=== PATIENT | female | born 1945 | race Hispanic/Latino ===

== ENCOUNTER 2018-04-20 21:25 | Emergency (ER) | payer OTHER ==
--- NOTE | 2018-04-20 23:54 | ER ---
Nurse's Notes [facility] Name: Jacqueline Ramirez Age: 72 yrs Sex: Female : 1945 Arrival Date: 04/20/2018 Time: 21:27 Bed 20 Private MD: Brian Oliva Diagnosis: Acute sinusitis Presentation: 04/20 21:30 Presenting complaint: Patient states: Earache and dizziness since yesterday. Denies aj1 fever. Reports nausea, denies vomiting, diarrhea. Transition of care: patient was not received from another setting of care. Onset of symptoms was April 19, 2018. Risk Assessment: Do you want to hurt yourself or someone else? Patient reports no desire to harm self or others. Initial Sepsis Screen: Does the patient meet any 2 criteria? No. Patient's initial sepsis screen is negative. Does the patient have a suspected source of infection? No. Patient's initial sepsis screen is negative. Care prior to arrival: None. 21:30 Method Of Arrival: Ambulatory aj1 21:30 Acuity: NASRIN 3 aj1 Triage Assessment: 21:32 General: Appears in no apparent distress. comfortable, Behavior is calm, cooperative, aj1 appropriate for age. Pain: Complains of pain in left ear Pain currently is 9 out of 10 on a pain scale. EENT: Reports ear pain. Neuro: Level of Consciousness is awake, alert, obeys commands. Neuro: Reports dizziness. Cardiovascular: Patient's skin is warm and dry. Respiratory: Airway is patent Respiratory effort is even, unlabored, Respiratory pattern is regular, symmetrical. Historical: - Allergies: 21:32 No Known Allergies; aj1 - Home Meds: 21:32 losartan 50 mg Oral tab [Active]; multivitamin oral oral [Active]; [place]-3 oral oral aj1 [Active]; - PMHx: 21:32 Hypertension; aj1 - Immunization history:: Flu vaccine is up to date. - Social history:: Smoking status: Patient/guardian denies using tobacco. - Ebola Screening: : Patient denies travel to an Ebola-affected area in the 21 days before illness onset. Screenin:10 Abuse screen: Denies threats or abuse. Denies injuries from another. Nutritional ak1 screening: No deficits noted. Tuberculosis screening: No symptoms or risk factors identified. Fall Risk None identified. Assessment: 22:10 General: Appears in no apparent distress. Behavior is calm, cooperative. Neuro: No ak1 deficits noted. Cardiovascular: No deficits noted. Respiratory: No deficits noted. GI: No signs and/or symptoms were reported involving the gastrointestinal system. : No signs and/or symptoms were reported regarding the genitourinary system. EENT: Reports ear pain, throat pain. Derm: No signs and/or symptoms reported regarding the dermatologic system. Musculoskeletal: No signs and/or symptoms reported regarding the musculoskeletal system. Vital Signs: 21:32 BP 171 / 83; Pulse 93; Resp 20; Temp 98.8; Pulse Ox 99% on R/A; Weight 85.73 kg (R); aj1 Height 5 ft. 2 in. (157.48 cm) (R); Pain 9/10; 23:21 BP 170 / 78; Pulse 85; Resp 18; Temp 97.9(O); Pulse Ox 97% on R/A; Pain 0/10; ak1 21:32 Body Mass Index 34.57 (85.73 kg, 157.48 cm) aj1 ED Course: 21:27 Patient arrived in ED. al2 21:27 Brian Oliva MD is Private Physician. al2 21:31 Triage completed. aj1 21:32 Arm band placed on Patient placed in an exam room. aj1 21:34 Cecy Walker, RN is Primary Nurse. ak1 21:49 Lissy Tello FNP-C is PHCP. kb 21:50 Brenden Candelario MD is Attending Physician. kb 22:10 Patient has correct armband on for positive identification. Bed in low position. Call ak1 light in reach. Side rails up X 1. 22:10 No provider procedures requiring assistance completed. ak1 04/21 00:05 Patient did not have IV access during this emergency room visit. ak1 Administered Medications: 00:04 Drug: Meclizine 25 mg Route: PO; ak1 00:04 Follow up: Response: No adverse reaction ak1 00:04 Drug: predniSONE 40 mg Route: PO; ak1 00:05 Follow up: Response: No adverse reaction ak1 Outcome: 04/20 23:54 Discharge ordered by . thalia 04/21 00:05 Discharged to home ambulatory, with family. ak1 Condition: good Discharge instructions given to patient, Instructed on discharge instructions, follow up and referral plans. medication usage, Demonstrated understanding of instructions, follow-up care, medications, Prescriptions given X 1. 00:05 Patient left the ED. ak1 Signatures: Lissy Tello, SALLY ALONSO-Starla Mack, RN RN aj1 Cecy Walker RN RN ak1 Leslie Pate
--- NOTE | 2018-04-20 23:54 | EDPHYS ---
Physician Documentation [facility] Emergency [facility] Name: Jacqueline Ramirez Age: 72 yrs Sex: Female : 1945 Arrival Date: 04/20/2018 Time: 21:27 Bed 20 Private MD: Brian Oliva ED Physician Brenden Candelario HPI: 04/20 23:51 This 72 yrs old Female presents to ER via Ambulatory with complaints of Ear kb Pain, Dizziness. 23:51 The patient presents with pain, moderate. The complaints affect the left ear. Onset: kb The symptoms/episode began/occurred 3 day(s) ago. Modifying factors: The symptoms are alleviated by nothing, the symptoms are aggravated by nothing. Associated signs and symptoms: Pertinent positives: sinus congestion and pain, vertigo, Pertinent negatives: cough, fever, lightheadedness, nausea, rhinorrhea, sinus trouble, shortness of breath, sore throat, tinnitus, vomiting. Severity of symptoms: At their worst the symptoms were moderate in the emergency department the symptoms are unchanged. The patient has not experienced similar symptoms in the past. The patient has not recently seen a physician. Pt reports left ear pain, sinus pain/congestion and "mucus in throat" for 3 days. Reports she has also been getting dizzy when she lays her head down to one side. . Historical: - Allergies: 21:32 No Known Allergies; aj1 - Home Meds: 21:32 losartan 50 mg Oral tab [Active]; multivitamin oral oral [Active]; [place]-3 oral oral aj1 [Active]; - PMHx: 21:32 Hypertension; aj1 - Immunization history:: Flu vaccine is up to date. - Social history:: Smoking status: Patient/guardian denies using tobacco. - Ebola Screening: : Patient denies travel to an Ebola-affected area in the 21 days before illness onset. ROS: 23:50 Constitutional: Negative for fever, chills, and weight loss, Neck: Negative for injury, kb pain, and swelling, Cardiovascular: Negative for chest pain, palpitations, and edema, Respiratory: Negative for shortness of breath, cough, wheezing, and pleuritic chest pain, Abdomen/GI: Negative for abdominal pain, nausea, vomiting, diarrhea, and constipation, Back: Negative for injury and pain, : Negative for injury, bleeding, discharge, and swelling, MS/Extremity: Negative for injury and deformity, Skin: Negative for injury, rash, and discoloration. 23:50 ENT: Positive for ear pain, sinus congestion, sinus pain, sore throat. 23:50 Neuro: Positive for dizziness, Negative for altered mental status, gait disturbance, headache, hearing loss, loss of consciousness, numbness, seizure activity, speech changes, syncope, near syncope, tingling, tinnitus, tremor, visual changes, weakness. Exam: 23:50 Constitutional: This is a well developed, well nourished patient who is awake, alert, kb and in no acute distress. Head/Face: Normocephalic, atraumatic. ENT: Nares patent. No nasal discharge, no septal abnormalities noted. Tympanic membranes are normal and external auditory canals are clear. Oropharynx with no redness, swelling, or masses, exudates, or evidence of obstruction, uvula midline. Mucous membranes moist. Neck: Trachea midline, no thyromegaly or masses palpated, and no cervical lymphadenopathy. Supple, full range of motion without nuchal rigidity, or vertebral point tenderness. No Meningismus. Chest/axilla: Normal chest wall appearance and motion. Nontender with no deformity. No lesions are appreciated. Cardiovascular: Regular rate and rhythm with a normal S1 and S2. No gallops, murmurs, or rubs. Normal PMI, no JVD. No pulse deficits. Respiratory: Lungs have equal breath sounds bilaterally, clear to auscultation and percussion. No rales, rhonchi or wheezes noted. No increased work of breathing, no retractions or nasal flaring. Abdomen/GI: Soft, non-tender, with normal bowel sounds. No distension or tympany. No guarding or rebound. No evidence of tenderness throughout. Skin: Warm, dry with normal turgor. Normal color with no rashes, no lesions, and no evidence of cellulitis. MS/ Extremity: Pulses equal, no cyanosis. Neurovascular intact. Full, normal range of motion. Neuro: Awake and alert, GCS 15, oriented to person, place, time, and situation. Cranial nerves II-XII grossly intact. Motor strength 5/5 in all extremities. Sensory grossly intact. Cerebellar exam normal. Normal gait. 23:50 Head/face: Sinus tenderness, that is moderate, is located over the right frontal sinus, left frontal sinus, right ethmoid sinus and left ethmoid sinus. Vital Signs: 21:32 BP 171 / 83; Pulse 93; Resp 20; Temp 98.8; Pulse Ox 99% on R/A; Weight 85.73 kg (R); aj1 Height 5 ft. 2 in. (157.48 cm) (R); Pain 9/10; 23:21 BP 170 / 78; Pulse 85; Resp 18; Temp 97.9(O); Pulse Ox 97% on R/A; Pain 0/10; ak1 21:32 Body Mass Index 34.57 (85.73 kg, 157.48 cm) aj1 MDM: 21:50 Patient medically screened. kb 23:50 Data reviewed: vital signs, nurses notes. Data interpreted: Pulse oximetry: on room air kb is 97 %. Interpretation: normal. Counseling: I had a detailed discussion with the patient and/or guardian regarding: the historical points, exam findings, and any diagnostic results supporting the discharge/admit diagnosis, lab results, the need for outpatient follow up, a family practitioner, to return to the emergency department if symptoms worsen or persist or if there are any questions or concerns that arise at home. 04/20 22:09 Order name: Flu; Complete Time: 23:02 ak1 04/20 22:09 Order name: Strep; Complete Time: 22:47 ak1 04/20 22:42 Order name: Throat Culture EDMS Administered Medications: 04/21 00:04 Drug: Meclizine 25 mg Route: PO; ak1 00:04 Follow up: Response: No adverse reaction ak1 00:04 Drug: predniSONE 40 mg Route: PO; ak1 00:05 Follow up: Response: No adverse reaction ak1 Disposition: 04/20/18 23:54 Discharged to Home. Impression: Acute sinusitis. - Condition is Stable. - Discharge Instructions: Sinusitis, Adult, [id number]. - Prescriptions for Prednisone 20 mg Oral Tablet - take 1 tablet by ORAL route once daily for 5 days; 5 tablet. - Medication Reconciliation Form, Thank You Letter, Antibiotic Education, Prescription Opioid Use form. - Follow up: Emergency Department; When: As needed; Reason: Worsening of condition. Follow up: Private Physician; When: 2 - 3 days; Reason: Recheck today's complaints, Continuance of care, Re-evaluation by your physician. Signatures: Dispatcher [employer] Lissy Garrido, RECEPTIONIST/TELEPHONE OPERATOR-C RECEPTIONIST/TELEPHONE OPERATOR-Starla Mack, RN RN aj1 Cecy Walker RN RN ak1 Corrections: (The following items were deleted from the chart) 00:05 04/20 23:54 04/20/2018 23:54 Discharged to Home. Impression: Acute sinusitis. Condition ak1 is Stable. Forms are Medication Reconciliation Form, Thank You Letter, Antibiotic Education, Prescription Opioid Use. Follow up: Emergency Department; When: As needed; Reason: Worsening of condition. Follow up: Private Physician; When: 2 - 3 days; Reason: Recheck today's complaints, Continuance of care, Re-evaluation by your physician. kb
[2018-04-21] MEDS ORDERED: predniSONE 20 MG TAB ONE (00:10)
[2018-04-21] MEDS ORDERED: MECLIZINE HCL 12.5 MG TAB ONE (00:10)
[2018-04-21 00:41] VITALS: BP 170/78; TEMP 97.9; O2SAT 97
== END 2018-04-21 00:05 | disposition home or self-care (01) ==
LOC: ER 21:25
DX: J01.90 Acute sinusitis, unspecified (principal); I10 Essential (primary) hypertension
CPT/HCPCS: 87070; 87081; 87804; 99283; J7512

== ENCOUNTER 2019-05-08 04:28 | Emergency (ER) | payer OTHER ==
[2019-05-08] MEDS ORDERED: MAGNE/ALUM HYDROXD 30 ML UCUP ONE (05:01)
[2019-05-08] MEDS ORDERED: PANTOPRAZOLE 40 MG INJ ONE (05:01)
[2019-05-08] MEDS ORDERED: LIDOCAINE VISCOUS 2% SOLN 15 ML UDC ONE (05:02)
[2019-05-08 05:11] LABS: Absolute Lymphocytes (CBC) 2.4 K/uL (0.7-4.9); Basophils % 0.4 % (0-1.3); Hematocrit 44.5 % (36.0-45.0); Lymphocytes % 26.3 % (15.3-44.8); MPV 8.5 fL (7.6-11.3); RBC Red Blood Cell Count 5.03 M/uL (3.86-4.86)
[2019-05-08 05:12] LABS: Protime INR 0.97
[2019-05-08 05:32] LABS: ALT/SGPT 26 U/L (12-78); AST/SGOT 15 U/L (15-37); Albumin 3.6 g/dL (3.4-5.0); Alkaline Phosphatase 133 U/L (45-117); BUN Blood Urea Nitrogen 11 mg/dL (7-18); Bicarbonate 27 mmol/L (21-32); Bilirubin Direct < 0.1 mg/dL (0-0.2); Bilirubin Total 0.4 mg/dL (0.2-1.0); Glucose Level 117 mg/dL (74-106); Lipase 98 U/L (73-393); Magnesium 2.2 mg/dL (1.8-2.4); NT PRO-BNP 138 pg/mL (<125); Potassium 3.7 mmol/L (3.5-5.1); Protein, Total 7.9 g/dL (6.4-8.2); Sodium Level 141 mmol/L (136-145); Troponin (Emerg Dept Use Only) < 0.02 ng/mL (0.0-0.045)
[2019-05-08] MEDS ORDERED: METOPROLOL TAR 50 MG TAB ONE (05:41)
[2019-05-08 06:02] LABS: Urine Blood TRACE (NEG); Urine Glucose NEGATIVE (NEG); Urine Protein NEGATIVE (NEG)
--- NOTE | 2019-05-08 07:17 | ER ---
Nurse's Notes [facility] Name: Jacqueline Ramirez Age: 73 yrs Sex: Female : 1945 Arrival Date: 05/08/2019 Time: 04:30 Bed 6 Private MD: Diagnosis: Gastro-esophageal reflux disease;Essential (primary) hypertension;Nausea;Urinary tract infection, site not specified Presentation: 05/08 04:40 Presenting complaint: Patient states: she thinks she is having heart burn and a sore bb throat for 2 days states she is burping a lot. Transition of care: patient was not received from another setting of care. Onset of symptoms was May 06, 2019. Risk Assessment: Do you want to hurt yourself or someone else? Patient reports no desire to harm self or others. Initial Sepsis Screen: Does the patient meet any 2 criteria? No. Patient's initial sepsis screen is negative. Does the patient have a suspected source of infection? No. Patient's initial sepsis screen is negative. Care prior to arrival: None. 04:40 Method Of Arrival: Ambulatory bb 04:40 Acuity: NASRIN 3 bb Historical: - Allergies: 04:42 No Known Allergies; bb - Home Meds: 04:42 losartan 50 mg Oral tab [Active]; [place]-3 Oral [Active]; bb - PMHx: 04:42 Hypertension; bb - PSHx: 04:42 None; bb - Immunization history:: Adult Immunizations up to date. - Social history:: Smoking status: Patient/guardian denies using tobacco. - Ebola Screening: : No symptoms or risks identified at this time. Screenin:10 Abuse screen: Denies threats or abuse. Nutritional screening: No deficits noted. jd3 Tuberculosis screening: No symptoms or risk factors identified. Fall Risk IV access (20 points). Ambulatory Aid- None/Bed Rest/Nurse Assist (0 pts). Gait- Normal/Bed Rest/Wheelchair (0 pts) Mental Status- Oriented to own ability (0 pts). Total [place] Fall Scale indicates No Risk (0-24 pts). Assessment: 04:50 General: Appears in no apparent distress. uncomfortable, Behavior is calm, cooperative, jd3 appropriate for age. Pain: Complains of pain in throat Quality of pain is described as aching. Neuro: Level of Consciousness is awake, alert, obeys commands, Oriented to person, place, time, situation. Cardiovascular: Denies chest pain, Capillary refill < 3 seconds Patient's skin is warm and dry. Rhythm is regular. Respiratory: Airway is patent Respiratory effort is even, unlabored, Respiratory pattern is regular, symmetrical, Denies cough, shortness of breath. GI: Abdomen is round non-distended, Reports indigestion, Patient currently denies diarrhea, nausea, vomiting. : No signs and/or symptoms were reported regarding the genitourinary system. EENT: No signs and/or symptoms were reported regarding the EENT system. Derm: Skin is intact, Skin is dry, Skin is normal, Skin temperature is warm. Musculoskeletal: Circulation, motion, and sensation intact. Range of motion: intact in all extremities. 05:40 Reassessment: Patient appears in no apparent distress at this time. Patient and/or jd3 family updated on plan of care and expected duration. Pain level reassessed. Patient is alert, oriented x 3, equal unlabored respirations, skin warm/dry/pink. Patient denies pain at this time. Patient states feeling better. 06:05 Reassessment: Patient appears in no apparent distress at this time. Patient and/or jd3 family updated on plan of care and expected duration. Pain level reassessed. Patient is alert, oriented x 3, equal unlabored respirations, skin warm/dry/pink. repeat EKG performed and repeat Trop sent to lab Patient denies pain at this time. Patient states feeling better. 07:00 Reassessment: Patient appears in no apparent distress at this time. Patient and/or ph family updated on plan of care and expected duration. Pain level reassessed. Patient is alert, oriented x 3, equal unlabored respirations, skin warm/dry/pink. Vital Signs: 04:42 BP 187 / 95; Pulse 89; Resp 16 S; Temp 99.3(TE); Pulse Ox 97% on R/A; Weight 86.64 kg bb (R); Height 5 ft. 2 in. (157.48 cm) (R); Pain 9/10; 05:40 BP 189 / 63; Pulse 79; Resp 19 S; Pulse Ox 98% on R/A; jd3 06:05 BP 162 / 74; Pulse 72; Resp 16 S; Pulse Ox 95% on R/A; jd3 07:00 BP 159 / 78; Pulse 76; Resp 18; Temp 98.4; Pulse Ox 98% on R/A; ph 04:42 Body Mass Index 34.93 (86.64 kg, 157.48 cm) bb ED Course: 04:30 Patient arrived in ED. cl3 04:36 Mychal Salazar MD is Attending Physician. an 04:41 Triage completed. bb 04:42 Arm band placed on Patient placed in an exam room, on a stretcher, on site monitor, bb on pulse oximetry. EKG completed in triage. Results shown to MD. Family accompanied patient. 04:50 Inserted saline lock: 20 gauge in right forearm, using aseptic technique. Blood jd3 collected. 04:52 Seven Nguyen, ARTUR is Primary Nurse. jd3 05:11 XRAY Chest (1 view) In Process Unspecified. EDMS 05:11 Patient has correct armband on for positive identification. Placed in gown. Bed in low jd3 position. Call light in reach. Side rails up X 1. Adult w/ patient. 07:11 Josh Jewell MD is Referral Physician. an 07:40 No provider procedures requiring assistance completed. IV discontinued, intact, ph bleeding controlled, No redness/swelling at site. Pressure dressing applied. Administered Medications: 05:08 Drug: ProTONIX 40 mg Route: IVP; Site: right forearm; jd3 08:38 Follow up: Response: No adverse reaction ph 05:08 Drug: GI Cocktail without - (Maalox Suspension 30 ml, Lidocaine Liquid 2 % 15 jd3 ml) Route: PO; 07:30 Follow up: Response: No adverse reaction ph 05:40 Drug: Lopressor (metoprolol TARTRATE) 50 mg Route: PO; jd3 07:10 Follow up: Response: No adverse reaction ph 07:41 Not Given (Patient Refused): Rocephin 1 grams IV at per protocol once; Given slow IV ph push per pharmacy instructions 07:41 Drug: Aspirin Chewable Tablet 162 mg Route: PO; ph 07:45 Follow up: Response: No adverse reaction ph 07:41 Drug: LevOfloxacin 500 mg Route: PO; ph 07:45 Follow up: Response: No adverse reaction ph Outcome: 07:11 Discharge ordered by . an 07:42 Patient left the ED. ph 07:42 Discharged to home ambulatory, with family. ph 07:42 Condition: good 07:42 Discharge instructions given to patient, Instructed on discharge instructions, follow up and referral plans. medication usage, Demonstrated understanding of instructions, follow-up care, medications, Prescriptions given X 5 Addendum: 05/11/2019 09:20 Addendum: Culture Results: Positive urine culture. No further action required. Bacteria a a5 sensitive to prescribed antibiotic. Signatures: Dispatcher [employer] EDUT Mychal Salazar MD MD cha Ballard, Brenda RN RN bb Amanda Camara RN RN aa5 Betzaida Lee RN RN Seven Stanley RN RN Alda Ovalle cl3 Corrections: (The following items were deleted from the chart) 05/08 06:06 06:05 Reassessment: Patient appears in no apparent distress at this time. Patient jd3 and/or family updated on plan of care and expected duration. Pain level reassessed. Patient is alert, oriented x 3, equal unlabored respirations, skin warm/dry/pink. repeat EKG performed and repeat Trop sent to lab jd3 08:40 08:39 Response: No adverse reaction ph ph
--- NOTE | 2019-05-08 07:21 | EDPHYS ---
Physician Documentation [facility] Name: Jacqueline Ramirez Age: 73 yrs Sex: Female : 1945 Arrival Date: 05/08/2019 Time: 04:30 Bed 6 Private MD: ED Physician Mychal Salazar HPI: 05/08 04:53 This 73 yrs old Female presents to ER via Ambulatory with complaints of an Nausea, Heartburn. 04:53 The patient presents to the emergency department with nausea, that is mild. Onset: The an symptoms/episode began/occurred 2 day(s) ago. Possible causes: unknown. The symptoms are aggravated by nothing. The symptoms are alleviated by nothing. Associated signs and symptoms: The patient has no apparent associated signs or symptoms. Severity of symptoms: At their worst the symptoms were mild in the emergency department the symptoms are unchanged. The patient has not experienced similar symptoms in the past, but family has similar symptoms. Historical: - Allergies: 04:42 No Known Allergies; bb - Home Meds: 04:42 losartan 50 mg Oral tab [Active]; [place]-3 Oral [Active]; bb - PMHx: 04:42 Hypertension; bb - PSHx: 04:42 None; bb - Immunization history:: Adult Immunizations up to date. - Social history:: Smoking status: Patient/guardian denies using tobacco. - Ebola Screening: : No symptoms or risks identified at this time. ROS: 04:54 Constitutional: Negative for fever, chills, and weight loss, Eyes: Negative for injury, an pain, redness, and discharge, ENT: Negative for injury, pain, and discharge, Cardiovascular: Negative for chest pain, palpitations, and edema, Respiratory: Negative for shortness of breath, cough, wheezing, and pleuritic chest pain, Abdomen/GI: Negative for abdominal pain, nausea, vomiting, diarrhea, and constipation, Back: Negative for injury and pain, : Negative for injury, bleeding, discharge, and swelling, MS/Extremity: Negative for injury and deformity, Skin: Negative for injury, rash, and discoloration, Neuro: Negative for headache, weakness, numbness, tingling, and seizure, Psych: Negative for depression, anxiety, suicide ideation, homicidal ideation, and hallucinations, Allergy/Immunology: Negative for hives, rash, and allergies, Endocrine: Negative for neck swelling, polydipsia, polyuria, polyphagia, and marked weight changes, Hematologic/Lymphatic: Negative for swollen nodes, abnormal bleeding, and unusual bruising. 04:54 Neck: Positive for pain at rest. Exam: 04:54 Constitutional: This is a well developed, well nourished patient who is awake, alert, an and in no acute distress. Head/Face: Normocephalic, atraumatic. Eyes: Pupils equal round and reactive to light, extra-ocular motions intact. Lids and lashes normal. Conjunctiva and sclera are non-icteric and not injected. Cornea within normal limits. Periorbital areas with no swelling, redness, or edema. ENT: Nares patent. No nasal discharge, no septal abnormalities noted. Tympanic membranes are normal and external auditory canals are clear. Oropharynx with no redness, swelling, or masses, exudates, or evidence of obstruction, uvula midline. Mucous membranes moist. Neck: Trachea midline, no thyromegaly or masses palpated, and no cervical lymphadenopathy. Supple, full range of motion without nuchal rigidity, or vertebral point tenderness. No Meningismus. Chest/axilla: Normal chest wall appearance and motion. Nontender with no deformity. No lesions are appreciated. Cardiovascular: Regular rate and rhythm with a normal S1 and S2. No gallops, murmurs, or rubs. Normal PMI, no JVD. No pulse deficits. Respiratory: Lungs have equal breath sounds bilaterally, clear to auscultation and percussion. No rales, rhonchi or wheezes noted. No increased work of breathing, no retractions or nasal flaring. Abdomen/GI: Soft, non-tender, with normal bowel sounds. No distension or tympany. No guarding or rebound. No evidence of tenderness throughout. Back: No spinal tenderness. No costovertebral tenderness. Full range of motion. Female : Normal external genitalia. Skin: Warm, dry with normal turgor. Normal color with no rashes, no lesions, and no evidence of cellulitis. MS/ Extremity: Pulses equal, no cyanosis. Neurovascular intact. Full, normal range of motion. Neuro: Awake and alert, GCS 15, oriented to person, place, time, and situation. Cranial nerves II-XII grossly intact. Motor strength 5/5 in all extremities. Sensory grossly intact. Cerebellar exam normal. Normal gait. Psych: Awake, alert, with orientation to person, place and time. Behavior, mood, and affect are within normal limits. Vital Signs: 04:42 BP 187 / 95; Pulse 89; Resp 16 S; Temp 99.3(TE); Pulse Ox 97% on R/A; Weight 86.64 kg bb (R); Height 5 ft. 2 in. (157.48 cm) (R); Pain 9/10; 05:40 BP 189 / 63; Pulse 79; Resp 19 S; Pulse Ox 98% on R/A; jd3 06:05 BP 162 / 74; Pulse 72; Resp 16 S; Pulse Ox 95% on R/A; jd3 07:00 BP 159 / 78; Pulse 76; Resp 18; Temp 98.4; Pulse Ox 98% on R/A; ph 04:42 Body Mass Index 34.93 (86.64 kg, 157.48 cm) MDM: 04:37 Patient medically screened. [facility] 04:56 Data reviewed: vital signs, nurses notes, lab test result(s), EKG, radiologic studies, an plain films. 05/08 04:51 Order name: Basic Metabolic Panel; Complete Time: 06:56 [facility] 05/08 04:51 Order name: CBC with Diff; Complete Time: 06:56 [facility] 05/08 04:51 Order name: LFT's; Complete Time: 06:56 [facility] 05/08 04:51 Order name: Magnesium; Complete Time: 06:56 [facility] 05/08 04:51 Order name: NT PRO-BNP; Complete Time: 06:56 [facility] 05/08 04:51 Order name: PT-INR; Complete Time: 06:56 [facility] 05/08 04:51 Order name: Troponin (emerg Dept Use Only); Complete Time: 06:56 [facility] 05/08 04:51 Order name: XRAY Chest (1 view) [facility] 05/08 04:52 Order name: Urine Culture [facility] 05/08 04:52 Order name: Lipase; Complete Time: 06:56 [facility] 05/08 05:21 Order name: Troponin (emerg Dept Use Only): 6AM; Complete Time: 07:10 [facility] 05/08 05:56 Order name: Urine Dipstick--Ancillary (enter results) ar5 05/08 06:02 Order name: Urine Dipstick-Ancillary; Complete Time: 06:56 EDMS 05/08 04:51 Order name: EKG; Complete Time: 04:53 an 05/08 04:51 Order name: Cardiac monitoring; Complete Time: 04:53 an 05/08 04:51 Order name: EKG - Nurse/Tech; Complete Time: 04:53 an 05/08 04:51 Order name: IV Saline Lock; Complete Time: 04:53 an 05/08 04:51 Order name: Labs collected and sent; Complete Time: 04:53 an 05/08 04:51 Order name: O2 Per Protocol; Complete Time: 04:53 an 05/08 04:51 Order name: O2 Sat Monitoring; Complete Time: 04:53 an 05/08 04:51 Order name: Urine Dipstick-Ancillary (obtain specimen); Complete Time: 06:04 an 05/08 05:21 Order name: EKG; Complete Time: 05:29 an 05/08 05:21 Order name: EKG - Nurse/Tech; Complete Time: 06:04 an Administered Medications: 05:08 Drug: ProTONIX 40 mg Route: IVP; Site: right forearm; jd3 08:38 Follow up: Response: No adverse reaction ph 05:08 Drug: GI Cocktail without - (Maalox Suspension 30 ml, Lidocaine Liquid 2 % 15 jd3 ml) Route: PO; 07:30 Follow up: Response: No adverse reaction ph 05:40 Drug: Lopressor (metoprolol TARTRATE) 50 mg Route: PO; jd3 07:10 Follow up: Response: No adverse reaction ph 07:41 Not Given (Patient Refused): Rocephin 1 grams IV at per protocol once; Given slow IV ph push per pharmacy instructions 07:41 Drug: Aspirin Chewable Tablet 162 mg Route: PO; ph 07:45 Follow up: Response: No adverse reaction ph 07:41 Drug: LevOfloxacin 500 mg Route: PO; ph 07:45 Follow up: Response: No adverse reaction ph Disposition: 05/08/19 07:11 Discharged to Home. Impression: Gastro-esophageal reflux disease, Essential (primary) hypertension, Nausea, Urinary tract infection, site not specified. - Condition is Stable. - Discharge Instructions: Dysuria, Gastroesophageal Reflux Disease, Adult, Hypertension, Urinary Tract Infection, Adult, Urinary Tract Infection, Adult, [id number]-[id number], Hypertension, Glxs-ar-Spsy, Gastroesophageal Reflux Disease, Adult, Yrmt-so-[id number], Aspirin and Your Heart. - Prescriptions for Protonix 40 mg Oral Tablet - take 1 tablet by ORAL route once daily; 30 tablet. Toprol XL 50 mg Oral Tablet - take 1 tablet by ORAL route once daily; 20 tablet. Zofran 4 mg Oral Tablet - take 1 tablet by ORAL route every 12 hours As needed; 20 tablet. losartan 50 mg Oral tablet - take 1 tablet by ORAL route once daily; 30 tablet. Levaquin 250 mg Oral Tablet - take 1 tablet by ORAL route once daily for 7 days; 7 tablet. - Medication Reconciliation Form, Thank You Letter, Antibiotic Education, Prescription Opioid Use form. - Follow up: Private Physician; When: 2 - 3 days; Reason: Recheck today's complaints, Continuance of care, Re-evaluation by your physician. Follow up: Josh Jewell; When: 2 - 3 days; Reason: Recheck today's complaints, Re-evaluation by your physician. - Problem is new. - Symptoms have improved. Signatures: Dispatcher [employer] EDMS Mychal Salazar MD MD cha Ballard, Brenda, RN RN Betzaida Martins RN RN Seven Stanley RN RN jd3 Corrections: (The following items were deleted from the chart) 07:18 07:11 05/08/2019 07:11 Discharged to Home. Impression: Gastro-esophageal reflux an disease; Essential (primary) hypertension; Nausea. Condition is Stable. Discharge Instructions: Gastroesophageal Reflux Disease, Adult, Hypertension, Hypertension, Alqi-hr-Trgd, Gastroesophageal Reflux Disease, Adult, Bmij-ju-Xdkr, Aspirin and Your Heart. Prescriptions for Protonix 40 mg Oral Tablet - take 1 tablet by ORAL route once daily; 30 tablet, Toprol XL 50 mg Oral Tablet - take 1 tablet by ORAL route once daily; 20 tablet, Zofran 4 mg Oral Tablet - take 1 tablet by ORAL route every 12 hours As needed; 20 tablet, losartan 50 mg Oral tablet - take 1 tablet by ORAL route once daily; 30 tablet. and Forms are Medication Reconciliation Form, Thank You Letter, Antibiotic Education, Prescription Opioid Use. Follow up: Private Physician; When: 2 - 3 days; Reason: Recheck today's complaints, Continuance of care, Re-evaluation by your physician. Follow up: Josh Jewell; When: 2 - 3 days; Reason: Recheck today's complaints, Re-evaluation by your physician. Problem is new. Symptoms have improved. [facility] 07:42 07:18 05/08/2019 07:11 Discharged to Home. Impression: Gastro-esophageal reflux ph disease; Essential (primary) hypertension; Nausea; Urinary tract infection, site not specified. Condition is Stable. Discharge Instructions: Gastroesophageal Reflux Disease, Adult, Hypertension, Hypertension, Meua-qm-Kyhg, Gastroesophageal Reflux Disease, Adult, Hhrs-kz-Yszf, Aspirin and Your Heart. Prescriptions for Protonix 40 mg Oral Tablet - take 1 tablet by ORAL route once daily; 30 tablet, Toprol XL 50 mg Oral Tablet - take 1 tablet by ORAL route once daily; 20 tablet, Zofran 4 mg Oral Tablet - take 1 tablet by ORAL route every 12 hours As needed; 20 tablet, losartan 50 mg Oral tablet - take 1 tablet by ORAL route once daily; 30 tablet. and Forms are Medication Reconciliation Form, Thank You Letter, Antibiotic Education, Prescription Opioid Use. Follow up: Private Physician; When: 2 - 3 days; Reason: Recheck today's complaints, Continuance of care, Re-evaluation by your physician. Follow up: Josh Jewell; When: 2 - 3 days; Reason: Recheck today's complaints, Re-evaluation by your physician. Problem is new. Symptoms have improved. [facility]
[2019-05-08] MEDS ORDERED: levoFLOXacin 500 MG TAB ONE (07:35)
[2019-05-08] MEDS ORDERED: ASPIRIN 81 MG CHEWABLE TABLET ONE (07:35)
[2019-05-08] MEDS ORDERED: CEFTRIAXONE/SWI 1gm 1 GM/10 ML SYR ONE (07:35)
[2019-05-08 07:49] VITALS: TEMP 99.3
[2019-05-08 07:52] VITALS: BP 162/74; O2SAT 95
--- NOTE | 2019-05-08 09:33 | RAD REPORT ---
EXAM DESCRIPTION: RAD - Chest Single View - 05/08/2019 5:02 am CLINICAL HISTORY: Chest pain, abdominal pain, abdominal distention COMPARISON: October 2014 TECHNIQUE: AP portable chest image was obtained 0458 hours . FINDINGS: Lung volumes are low. Mild baseline interstitial pattern similar to comparison. Heart and vasculature are normal. No measurable pleural effusion and no pneumothorax. No acute bony abnormality seen. No acute aortic findings suspected. IMPRESSION: No acute cardiopulmonary process. No significant interval change.
--- NOTE | 2019-05-08 13:49 | EKG ---
Test Date: 2019-05-08 Test Time: 06:05:23 Engine Wiper: DORITA MEASUREMENT RESULTS: Intervals: Rate: 71 NC: 140 QRSD: 82 QT: 412 QTc: 447 [place]: P: 16 NC: 140 QRS: -13 T: 29 INTERPRETIVE STATEMENTS: Normal sinus rhythm Cannot rule out Anterior infarct, age undetermined Abnormal ECG Compared to ECG 05/08/2019 04:41:05 No significant changes Electronically Signed On 05-08-19 13:46:56 FOOD ORDER DELIVERY RUNNER by Josh Jewell
--- NOTE | 2019-05-08 13:49 | EKG ---
Test Date: 2019-05-08 Test Time: 04:41:05 Clinical Field Specialist: SHENG MEASUREMENT RESULTS: Intervals: Rate: 79 VA: 136 QRSD: 78 QT: 362 QTc: 415 [place]: P: 25 VA: 136 QRS: -10 T: 54 INTERPRETIVE STATEMENTS: Normal sinus rhythm Cannot rule out Anterior infarct, age undetermined Abnormal ECG Compared to ECG 10/21/2014 08:45:09 Myocardial infarct finding now present ST (T wave) deviation no longer present Electronically Signed On 05-08-19 13:46:57 DISTRIBUTION LEAD by Josh Jewell
== END 2019-05-08 07:42 | disposition home or self-care (01) ==
LOC: ER 04:28
DX: N39.0 Urinary tract infection, site not specified (principal); K21.9 Gastro-esophageal reflux disease without esophagitis; I10 Essential (primary) hypertension
CPT/HCPCS: 93005 ×2; 87088; 85025; 87086; 80048; 36415; 83735; 85610; 80076; 87077; 87186; 81003; 84484 ×2; 83690; 83880; 71045; 96374; 99284; C9113; J0696

== ENCOUNTER 2020-02-13 06:25 | Emergency (ER) | payer OTHER ==
[2020-02-13 07:49] LABS: Urine Bacteria 20-50 /HPF (<20); Urine Culture Reflex Order NOT NEEDED; Urine RBC <5 /HPF (NONE SEEN)
[2020-02-13] MEDS ORDERED: NA CHLORIDE 0.9% 0 ML ONE (07:56)
[2020-02-13] MEDS ORDERED: NA CHLORIDE 0.9% 1,000 ML ONE (08:09)
[2020-02-13 08:18] LABS: Absolute Lymphocytes (CBC) 1.3 K/uL (0.7-4.9); Basophils % 0.3 % (0-1.3); Lymphocytes % 14.6 % (15.3-44.8); MPV 8.4 fL (7.6-11.3); RBC Red Blood Cell Count 5.18 M/uL (3.86-4.86)
[2020-02-13 08:28] LABS: Urine Blood TRACE (NEG); Urine Glucose NEGATIVE (NEG); Urine Protein 1+ (NEG)
[2020-02-13] MEDS ORDERED: CEFTRIAXONE/SWI 1gm 1 GM/10 ML SYR ONE (08:31)
[2020-02-13 08:34] LABS: ALT/SGPT 19 U/L (12-78); AST/SGOT 14 U/L (15-37); Albumin 3.5 g/dL (3.4-5.0); Alkaline Phosphatase 154 U/L (45-117); BUN Blood Urea Nitrogen 9 mg/dL (7-18); Bicarbonate 26 mmol/L (21-32); Bilirubin Direct 0.1 mg/dL (0-0.2); Bilirubin Total 0.5 mg/dL (0.2-1.0); Glucose Level 112 mg/dL (74-106); Lipase 76 U/L (73-393); Magnesium 2.1 mg/dL (1.8-2.4); NT PRO-BNP 103 pg/mL (<125); Potassium 3.8 mmol/L (3.5-5.1); Protein, Total 7.6 g/dL (6.4-8.2); Sodium Level 140 mmol/L (136-145); Troponin (Emerg Dept Use Only) < 0.02 ng/mL (0.0-0.045)
[2020-02-13] MEDS ORDERED: ASPIRIN 81 MG CHEWABLE TABLET ONE (08:55)
--- NOTE | 2020-02-13 09:23 | RAD REPORT ---
EXAM DESCRIPTION: RAD - Chest Single View - 02/13/2020 8:12 am CLINICAL HISTORY: ABDOMINAL DISTENTION COMPARISON: Portable May 2019 TECHNIQUE: AP portable chest image was obtained 02/13/2020 8:12 am . FINDINGS: Lung volumes are relatively low. Interstitial pattern is not substantially different from comparison. Hazy opacification seen in each lung base. Small pleural effusions cannot be excluded. He art and vasculature are normal. No pneumothorax. No acute bony abnormality seen. No acute aortic find ings suspected. IMPRESSION: Chest is stable from comparison. Hazy opacification in each base is probably atelectasis. Small pleural effusions cannot be excluded.
[2020-02-13] MEDS ORDERED: FAMOTIDINE 20 MG TAB ONE (09:27)
--- NOTE | 2020-02-13 09:39 | RAD REPORT ---
EXAM DESCRIPTION: CT - Stone Protocol - 02/13/2020 9:28 am CLINICAL HISTORY: ABD PAIN COMPARISON: No comparisons TECHNIQUE: Axial 5 mm thick images were obtained without oral or IV contrast. The [id number] span s the entirety of the system including uppermost abdomen and lung bases. All CT scans are performed using dose optimization technique as appropriate and may include automated exposure control or mA/KV adjustment according to patient size. FINDINGS: No hydronephrosis is present and no obstructing ureteral calculi. No suspicious renal mass es. Isodense masses and pyelonephritis are not excluded on a stone protocol CT scan. No significant a drenal finding. Partially filled urinary bladder shows an estimated 6-8 small bladder stones 4 mm or less in size. Bladder wall thickness is accentuated by the contracted state. Uterus is absent. No suspicious ovarian finding. Patient has pelvic floor prolapse. Imaged portions of the liver, spleen and pancreas show no suspicious findings on non-contrast imaging . No gallbladder or biliary tree abnormality identified. No suspicious bowel findings. No hernia, mass or bulky lymphadenopathy noted. No free air, free fluid or inflammatory stranding. Disc and bony degenerative changes are present at L4-5 and L5-S1. Vascular calcifications are present . IMPRESSION: Multiple 4 mm or less sized bladder stones estimated 6-8 in quantity. No hydronephrosis or obstructing calculus. Uterus is absent. Pelvic floor prolapse is present. Isodense masses and pyelonephritis are not excluded on stone protocol technique.
--- NOTE | 2020-02-13 10:21 | EDPHYS ---
Physician Documentation [facility] Name: Jacqueline Ramirez Age: 74 yrs Sex: Female : 1945 Arrival Date: 02/13/2020 Time: 06:29 Bed 8 Private MD: ED Physician Mychal Salazar HPI: 02/12 07:57 This 74 yrs old Female presents to ER via Ambulatory with complaints of an Abdominal Pain. Historical: - Allergies: 06:42 No Known Allergies; bb - Home Meds: 06:42 losartan 50 mg Oral tab 1 tab once daily [Active]; [place]-3 1000 mg Oral daily [Active]; bb - PMHx: 06:42 Hypertension; bb - PSHx: 06:42 None; bb - Immunization history:: Adult Immunizations up to date. - Social history:: Smoking status: Patient denies any tobacco usage or history of. Patient/guardian denies using alcohol, street drugs. ROS: 08:05 Constitutional: Negative for fever, chills, and weight loss, Eyes: Negative for injury, an pain, redness, and discharge, ENT: Negative for injury, pain, and discharge, Neck: Negative for injury, pain, and swelling, Respiratory: Negative for shortness of breath, cough, wheezing, and pleuritic chest pain, Back: Negative for injury and pain, : Negative for injury, bleeding, discharge, and swelling, MS/Extremity: Negative for injury and deformity, Skin: Negative for injury, rash, and discoloration, Neuro: Negative for headache, weakness, numbness, tingling, and seizure, Psych: Negative for depression, anxiety, suicide ideation, homicidal ideation, and hallucinations, Allergy/Immunology: Negative for hives, rash, and allergies, Endocrine: Negative for neck swelling, polydipsia, polyuria, polyphagia, and marked weight changes, Hematologic/Lymphatic: Negative for swollen nodes, abnormal bleeding, and unusual bruising. 08:05 Cardiovascular: Positive for chest pain, of the left clavicle and anterior aspect of left upper chest, twing. 08:05 Abdomen/GI: Positive for abdominal pain, of the right lower quadrant and left lower quadrant. Exam: 08:05 Constitutional: This is a well developed, well nourished patient who is awake, alert, an and in no acute distress. Head/Face: Normocephalic, atraumatic. Eyes: Pupils equal round and reactive to light, extra-ocular motions intact. Lids and lashes normal. Conjunctiva and sclera are non-icteric and not injected. Cornea within normal limits. Periorbital areas with no swelling, redness, or edema. ENT: Nares patent. No nasal discharge, no septal abnormalities noted. Tympanic membranes are normal and external auditory canals are clear. Oropharynx with no redness, swelling, or masses, exudates, or evidence of obstruction, uvula midline. Mucous membranes moist. Neck: Trachea midline, no thyromegaly or masses palpated, and no cervical lymphadenopathy. Supple, full range of motion without nuchal rigidity, or vertebral point tenderness. No Meningismus. Chest/axilla: Normal chest wall appearance and motion. Nontender with no deformity. No lesions are appreciated. Cardiovascular: Regular rate and rhythm with a normal S1 and S2. No gallops, murmurs, or rubs. Normal PMI, no JVD. No pulse deficits. Respiratory: Lungs have equal breath sounds bilaterally, clear to auscultation and percussion. No rales, rhonchi or wheezes noted. No increased work of breathing, no retractions or nasal flaring. Abdomen/GI: Soft, non-tender, with normal bowel sounds. No distension or tympany. No guarding or rebound. No evidence of tenderness throughout. Back: No spinal tenderness. No costovertebral tenderness. Full range of motion. Skin: Warm, dry with normal turgor. Normal color with no rashes, no lesions, and no evidence of cellulitis. MS/ Extremity: Pulses equal, no cyanosis. Neurovascular intact. Full, normal range of motion. Neuro: Awake and alert, GCS 15, oriented to person, place, time, and situation. Cranial nerves II-XII grossly intact. Motor strength 5/5 in all extremities. Sensory grossly intact. Cerebellar exam normal. Normal gait. Psych: Awake, alert, with orientation to person, place and time. Behavior, mood, and affect are within normal limits. 08:05 Cardiovascular: Rate: normal, Rhythm: regular, Pulses: Pulses are 4+ in bilateral radial, brachial, femoral, popliteal, posterior tibial and and dorsalis pedis arteries.. Heart sounds: normal, Edema: is not appreciated, JVD: is not appreciated. 08:18 ECG was reviewed by the Attending Physician. an Vital Signs: 06:38 BP 176 / 99; Pulse 110; Resp 18 S; Temp 98.7(O); Pulse Ox 97% on R/A; Weight 85.73 kg bb (R); Height 5 ft. 3 in. (160.02 cm) (R); Pain 9/10; 07:23 BP 153 / 93; Pulse 102; Resp 14; Pulse Ox 97% on R/A; Pain 9/10; vg1 08:00 BP 148 / 74; Pulse 85 MON; Resp 20; Pulse Ox 97% on R/A; sv 08:46 BP 160 / 77; Pulse 83; Resp 14; Pulse Ox 96% on R/A; vg1 09:00 BP 130 / 82; Pulse 85; Resp 18; Pulse Ox 98% on R/A; Pain 7/10; vg1 09:49 BP 149 / 78; Pulse 90; Resp 16; Pulse Ox 98% on R/A; vg1 10:00 BP 142 / 71; Pulse 92; Resp 16; Pulse Ox 99% on R/A; Pain 5/10; vg1 06:38 Body Mass Index 33.48 (85.73 kg, 160.02 cm) bb 08:00 Sinus Rhythm sv MDM: 07:28 Patient medically screened. an 08:13 Differential diagnosis: abnormal EKG, anxiety, chest wall pain, hiatal hernia, an pancreatitis, pneumonia, cholecystitis, Cholelithiasis, gastritis, non-specific abd pain, pancreatitis. HEART Score: History: Slightly Suspicious (0), ECG: Normal (0), Age: > or = 65 years (2), Risk Factors: > or = 3 Risk factors for atherosclerotic disease (2), [Hypercholesterolemia] [Hypertension] [+ Family HX] [Obesity] Troponin: < or = 1 x Normal Limit (0). The patient was given aspirin in the Emergency Department. The patient's deep vein thrombosis risk score was calculated as follows: Total Score: 0. This patient was found to be at low risk for a deep vein thrombosis by using the Well's assessment criteria. The patient's pulmonary embolism risk score was calculated as follows: Total Score: 0-2 points. This patient was found to be at low risk for a pulmonary embolism by using the Well's assessment criteria. VIOLETTA Risk Score: TOTAL SCORE = 0. Data reviewed: vital signs, nurses notes, lab test result(s), EKG, radiologic studies, plain films. Data interpreted: shelter monitor: not applicable for this patient encounter. Pulse oximetry: is not applicable for this patient encounter. Test interpretation: by ED physician or midlevel provider: ECG, plain radiologic studies. Counseling: I had a detailed discussion with the patient and/or guardian regarding: the historical points, exam findings, and any diagnostic results supporting the discharge/admit diagnosis, lab results, radiology results, the need for outpatient follow up. 02/12 07:25 Order name: Urine Culture ph 02/12 07:25 Order name: Urine Microscopic Only; Complete Time: 07:57 ph 02/12 07:27 Order name: Urine Dipstick--Ancillary (enter results); Complete Time: 08:54 eb 02/12 07:39 Order name: Basic Metabolic Panel; Complete Time: 08:54 an 02/12 07:39 Order name: CBC with Diff; Complete Time: 08:54 [facility] 02/12 07:39 Order name: LFT's; Complete Time: 08:54 [facility] 02/12 07:39 Order name: Magnesium; Complete Time: 08:54 an 02/12 07:39 Order name: NT PRO-BNP; Complete Time: 08:54 [facility] 02/12 07:39 Order name: Troponin (emerg Dept Use Only); Complete Time: 08:54 [facility] 02/12 07:39 Order name: XRAY Chest (1 view); Complete Time: 10:00 [facility] 02/12 07:39 Order name: Lipase; Complete Time: 08:54 [facility] 02/12 09:07 Order name: Troponin I: 930 am; Complete Time: 10:20 an 02/12 09:07 Order name: CT Stone Protocol; Complete Time: 10:00 an 02/12 07:39 Order name: EKG; Complete Time: 07:40 an 02/12 07:39 Order name: Cardiac monitoring; Complete Time: 08:15 an 02/12 07:39 Order name: EKG - Nurse/Tech; Complete Time: 08:16 an 02/12 07:39 Order name: IV Saline Lock; Complete Time: 08:16 an 02/12 07:39 Order name: Labs collected and sent; Complete Time: 08:16 an 02/12 07:39 Order name: O2 Per Protocol; Complete Time: 08:16 an 02/12 07:39 Order name: O2 Sat Monitoring; Complete Time: :16 an EC:18 Rate is 86 beats/min. Rhythm is regular. QRS [place] is Normal. NV interval is normal. QRS an interval is normal. QT interval is normal. No Q waves. T waves are Normal. No ST changes noted. Clinical impression: Normal ECG and No evidence of ischemia. Administered Medications: 08:00 Drug: NS 0.9% 1000 ml Route: IV; Rate: 125 ml/hr; Site: right antecubital; sv 10:00 Follow up: Response: No adverse reaction vg1 10:39 Follow up: IV Status: Order to discontinue infusion vg1 08:20 Drug: Rocephin 1 grams Route: IV; Rate: per protocol; Site: right antecubital; sv 10:01 Follow up: Response: No adverse reaction; Pain is decreased vg1 08:40 Drug: Aspirin Chewable Tablet 162 mg Route: PO; vg1 10:01 Follow up: Response: No adverse reaction vg1 09:20 Drug: Pepcid 20 mg Route: PO; vg1 10:01 Follow up: Response: No adverse reaction vg1 09:48 Not Given (Other Intervention Used): Pepcid 20 mg IVP once vg1 Disposition: 02/13/20 10:20 Discharged to Home. Impression: Urinary tract infection, site not specified, Functional dyspepsia. - Condition is Fair. - Discharge Instructions: Dysuria, Indigestion, Urinary Tract Infection, Adult, Aspirin and Your Heart. - Prescriptions for Cipro 250 mg Oral Tablet - take 2 tablets by ORAL route every 12 hours; 14 tablet. Pepcid 20 mg Oral Tablet - take 1 tablet by ORAL route every 12 hours for 10 days; 20 tablet. - Medication Reconciliation Form, Thank You Letter, Antibiotic Education, Prescription Opioid Use form. - Follow up: Private Physician; When: 2 - 3 days; Reason: Recheck today's complaints, Continuance of care, Re-evaluation by your physician. Follow up: Josh Jewell; When: 2 - 3 days; Reason: Recheck today's complaints, Continuance of care, Re-evaluation by your physician. Follow up: Lizzie Arroyo; When: 2 - 3 days; Reason: Recheck today's complaints, Re-evaluation by your physician. - Problem is new. - Symptoms have improved. Signatures: Dispatcher [employer] Talya Garcia, RN RN Mychal Thomas MD MD cha Ballard, Brenda, RN RN Yasemin Khanna, RN RN vg1 Corrections: (The following items were deleted from the chart) 10:36 10:20 02/13/2020 10:20 Discharged to Home. Impression: Urinary tract infection, site vg1 not specified; Functional dyspepsia. Condition is Fair. Discharge Instructions: Dysuria, Indigestion, Urinary Tract Infection, Adult, Aspirin and Your Heart. Prescriptions for Cipro 250 mg Oral Tablet - take 2 tablets by ORAL route every 12 hours; 14 tablet, Pepcid 20 mg Oral Tablet - take 1 tablet by ORAL route every 12 hours for 10 days; 20 tablet. and Forms are Medication Reconciliation Form, Thank You Letter, Antibiotic Education, Prescription Opioid Use. Follow up: Private Physician; When: 2 - 3 days; Reason: Recheck today's complaints, Continuance of care, Re-evaluation by your physician. Follow up: Josh Jewell; When: 2 - 3 days; Reason: Recheck today's complaints, Continuance of care, Re-evaluation by your physician. Follow up: Lizzie Arroyo; When: 2 - 3 days; Reason: Recheck today's complaints, Re-evaluation by your physician. Problem is new. Symptoms have improved. an
--- NOTE | 2020-02-13 10:21 | ER ---
Nurse's Notes [facility] Name: Jacqueline Ramirez Age: 74 yrs Sex: Female : 1945 Arrival Date: 02/13/2020 Time: 06:29 Bed 8 Private MD: Diagnosis: Urinary tract infection, site not specified;Functional dyspepsia Presentation: 02/12 06:38 Chief complaint: Patient states: last night she started having some pain with bb urination, suprapubic pain, denies vomiting or diarrhea, but was feeling dizzy this morning when she got up she is not currently feeling dizzy, pt denies fever but is feeling "pressure" on both ears and her throat is irritated. Coronavirus screen: At this time, the client does not indicate any symptoms associated with coronavirus-19. Ebola Screen: No symptoms or risks identified at this time. Initial Sepsis Screen: Does the patient meet any 2 criteria? No. Patient's initial sepsis screen is negative. Does the patient have a suspected source of infection? Yes: Dysuria/Frequency/Urgency/UTI. Risk Assessment: Do you want to hurt yourself or someone else? Patient reports no desire to harm self or others. Onset of symptoms was February 12, 2020. 06:38 Method Of Arrival: Ambulatory bb 06:38 Acuity: NASRIN 3 bb Triage Assessment: 06:53 General: Appears in no apparent distress. Behavior is calm, cooperative. Pain: lp1 Complains of pain in suprapubic area. Neuro: Level of Consciousness is awake, alert, obeys commands. Cardiovascular: Patient's skin is warm and dry. GI: Abdomen is non-distended. : Reports burning with urination. Derm: Skin is intact, Skin is dry, Skin is normal. Musculoskeletal: No deficits noted. Historical: - Allergies: 06:42 No Known Allergies; bb - Home Meds: 06:42 losartan 50 mg Oral tab 1 tab once daily [Active]; [place]-3 1000 mg Oral daily [Active]; bb - PMHx: 06:42 Hypertension; bb - PSHx: 06:42 None; bb - Immunization history:: Adult Immunizations up to date. - Social history:: Smoking status: Patient denies any tobacco usage or history of. Patient/guardian denies using alcohol, street drugs. Screenin:51 Abuse screen: Denies threats or abuse. Denies injuries from another. Nutritional lp1 screening: No deficits noted. Tuberculosis screening: No symptoms or risk factors identified. 07:12 Fall Risk No fall in past 12 months (0 pts). IV access (20 points). Ambulatory Aid- vg1 None/Bed Rest/Nurse Assist (0 pts). Gait- Normal/Bed Rest/Wheelchair (0 pts) Mental Status- Oriented to own ability (0 pts). Total Arriaga Fall Scale indicates No Risk (0-24 pts). Assessment: 06:54 Reassessment: Patient unable to provide urine sample at this time. lp1 07:11 Reassessment: Patient appears in no apparent distress at this time. Patient is alert, vg1 oriented x 3, equal unlabored respirations, skin warm/dry/pink. Patient states feels pressure near bladder and pain level is 9/10. Patient took Cystex last night at 1930. Last urination was at 0530, patient states it was a 'trickle' with pain and burning. Patient also states feeling dizzy. General: Appears in no apparent distress. Behavior is calm, cooperative. Pain: Complains of pain in pelvis. Neuro: Level of Consciousness is awake, alert, obeys commands, Oriented to person, place, time, situation. Cardiovascular: Capillary refill < 3 seconds. Respiratory: Airway is patent Respiratory effort is even, unlabored. : Reports burning with urination, pain in suprapubic area. Derm: Skin is intact, Skin is pink, warm \\T\\ dry. Musculoskeletal: Range of motion: intact in all extremities. 07:29 Reassessment: Dr Salazar at patient bedside. vg1 08:34 Reassessment: Patient appears in no apparent distress at this time. states no concerns sv at this time. Bed low and locked, call light at side. 09:53 Reassessment: Patient appears in no apparent distress at this time. patient states pain vg1 is 5/10 and the pressure near the bladder "feels better" than this morning. 10:34 Reassessment: Patient appears in no apparent distress at this time. Patient is alert, vg1 oriented x 3, equal unlabored respirations, skin warm/dry/pink. patient rates pain 5/10 Patient states feeling better. Vital Signs: 06:38 BP 176 / 99; Pulse 110; Resp 18 S; Temp 98.7(O); Pulse Ox 97% on R/A; Weight 85.73 kg bb (R); Height 5 ft. 3 in. (160.02 cm) (R); Pain 9/10; 07:23 BP 153 / 93; Pulse 102; Resp 14; Pulse Ox 97% on R/A; Pain 9/10; vg1 08:00 BP 148 / 74; Pulse 85 MON; Resp 20; Pulse Ox 97% on R/A; sv 08:46 BP 160 / 77; Pulse 83; Resp 14; Pulse Ox 96% on R/A; vg1 09:00 BP 130 / 82; Pulse 85; Resp 18; Pulse Ox 98% on R/A; Pain 7/10; vg1 09:49 BP 149 / 78; Pulse 90; Resp 16; Pulse Ox 98% on R/A; vg1 10:00 BP 142 / 71; Pulse 92; Resp 16; Pulse Ox 99% on R/A; Pain 5/10; vg1 06:38 Body Mass Index 33.48 (85.73 kg, 160.02 cm) bb 08:00 Sinus Rhythm sv ED Course: 06:29 Patient arrived in ED. ag3 06:41 Triage completed. bb 06:42 Arm band placed on Patient placed in an exam room, on a stretcher, on pulse oximetry. bb Family accompanied patient. 07:05 Yasemin Machado, RN is Primary Nurse. sv 07:11 Patient has correct armband on for positive identification. Placed in gown. Bed in low vg1 position. Call light in reach. Side rails up X 1. cardiac monitor technician on. Pulse ox on. NIBP on. Door closed. 07:25 Urine collected: clean catch specimen, marie colored. ph 07:28 Mychal Salazar MD is Attending Physician. an 07:45 Inserted saline lock: 20 gauge in right antecubital area, using aseptic technique. vg1 Blood collected. 08:12 XRAY Chest (1 view) In Process Unspecified. EDMS 08:59 No apparent distress. Awaiting disposition. vg1 09:[address] via wheelchair. vg1 09:29 CT Stone Protocol In Process Unspecified. EDMS 09:[address] moved back from [address]. vg1 09:44 Troponin I: 930 am Sent. vg1 10:20 Josh Jewell MD is Referral Physician. an 10:20 Lizzie Arroyo MD is Referral Physician. an 10:35 No provider procedures requiring assistance completed. IV discontinued, bleeding vg1 controlled, No redness/swelling at site. Pressure dressing applied. Administered Medications: 08:00 Drug: NS 0.9% 1000 ml Route: IV; Rate: 125 ml/hr; Site: right antecubital; sv 10:00 Follow up: Response: No adverse reaction vg1 10:39 Follow up: IV Status: Order to discontinue infusion vg1 08:20 Drug: Rocephin 1 grams Route: IV; Rate: per protocol; Site: right antecubital; sv 10:01 Follow up: Response: No adverse reaction; Pain is decreased vg1 08:40 Drug: Aspirin Chewable Tablet 162 mg Route: PO; vg1 10:01 Follow up: Response: No adverse reaction vg1 09:20 Drug: Pepcid 20 mg Route: PO; vg1 10:01 Follow up: Response: No adverse reaction vg1 09:48 Not Given (Other Intervention Used): Pepcid 20 mg IVP once vg1 Outcome: 07:11 Condition: good vg1 10:20 Discharge ordered by . an 10:35 Discharged to home ambulatory. vg1 10:35 Discharge instructions given to patient, Instructed on discharge instructions, follow up and referral plans. medication usage, Demonstrated understanding of instructions, follow-up care, medications, Prescriptions given X 2. 10:36 Patient left the ED. vg1 Addendum: 02/16/2020 11:32 Addendum: Culture Results: Positive urine culture. No further action required. Bacteria i w sensitive to prescribed antibiotic. Signatures: Dispatcher [employer] EDTX Talya Nash RN RN sv Anderson, Corey, MD MD cha Ballard, Brenda, RN RN bb Williams, Irene, RN RN iw Lorin Felton RN RN lp1 Betzaida Lee RN RN Laury Evans Victoria, RN RN vg1 Corrections: (The following items were deleted from the chart) 02/12 07:26 07:11 Reassessment: Patient appears in no apparent distress at this time. Patient is vg1 alert, oriented x 3, equal unlabored respirations, skin warm/dry/pink. Patient states feels pressure near bladder and pain level is 9/10. Last urination was at 0530, patient states it was a 'trickle' with pain and burning. Patient also states feeling dizzy. vg1
[2020-02-13 10:43] VITALS: TEMP 98.7
[2020-02-13 10:50] VITALS: O2SAT 98
[2020-02-13 10:52] VITALS: BP 149/78
--- NOTE | 2020-02-14 11:13 | EKG ---
Test Date: 2020-02-13 Test Time: 07:52:59 Manager [employer]: ROSANNA MEASUREMENT RESULTS: Intervals: Rate: 86 TN: 142 QRSD: 80 QT: 386 QTc: 461 [place]: P: 44 TN: 142 QRS: -1 T: 33 INTERPRETIVE STATEMENTS: Normal sinus rhythm Inferior infarct, age undetermined Anterior infarct, age undetermined Abnormal ECG Compared to ECG 05/08/2019 06:05:23 No significant changes Electronically Signed On 02-14-20 11:12:40 CDT by Josh Jewell
== END 2020-02-13 10:36 | disposition home or self-care (01) ==
LOC: ER 06:25
DX: N39.0 Urinary tract infection, site not specified (principal); K30 Functional dyspepsia; I10 Essential (primary) hypertension
CPT/HCPCS: 96361; 93005; 87088; 85025; 87086; 80048; 36415; 83735; 80076; 87077; 87186; 84484 ×2; 83690; 83880; 76377; 74176; 71045; 96374; 99285; J0696; J7030; 81003; 81015

== ENCOUNTER 2020-02-28 07:57 | Emergency (ER) | payer OTHER ==
[2020-02-28] MEDS ORDERED: SILVER NITRATE 1 APPL TOP ONE (08:28)
--- NOTE | 2020-02-28 08:58 | ER ---
Nurse's Notes 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 Bleed upon arrival, controlled by pressure dressing placed by . Coronavirus screen: Client denies travel out of the [place] in the last 14 days. At this time, the client does not indicate any symptoms associated with coronavirus-19. Ebola Screen: No symptoms or risks identified at this time. Initial Sepsis Screen: Does the patient meet any 2 criteria? No. Patient's initial sepsis screen is negative. Does the patient have a suspected source of infection? No. Patient's initial sepsis screen is negative. Risk Assessment: Do you want to hurt yourself or someone else? Patient reports no desire to harm self or others. Onset of symptoms was February 28, 2020. 08:19 Method Of Arrival: Wheelchair zb 08:19 Acuity: NASRIN 4 zb Triage Assessment: 08:23 General: Appears in no apparent distress. comfortable, well groomed, Behavior is calm, zb cooperative, appropriate for age. Pain: Denies pain. Neuro: No deficits noted. Cardiovascular: No deficits noted. Respiratory: No deficits noted. Derm: Skin is healthy with good turgor, Skin is pink, warm \T\ dry. Musculoskeletal: Circulation, motion, and sensation intact. Injury Description: pin point area of bleeding noted, appear to be a varicose vein. Historical: - Allergies: 08:22 No Known Drug Allergies; zb - Home Meds: 08:22 losartan 50 mg Oral tab 1 tab once daily [Active]; [place]-3 1000 mg Oral daily [Active]; zb - PMHx: 08:22 Hypertension; zb - PSHx: 08:22 None; zb - Immunization history:: Adult Immunizations unknown. - Social history:: Smoking status: Patient denies any tobacco usage or history of. - Family history:: not pertinent. - Hospitalizations: : No recent hospitalization is reported. Screenin:28 Abuse screen: Denies threats or abuse. Denies injuries from another. Nutritional zb screening: No deficits noted. Tuberculosis screening: No symptoms or risk factors identified. Fall Risk None identified. No secondary diagnosis (0 pts). No IV (0 pts). Ambulatory Aid- None/Bed Rest/Nurse Assist (0 pts). Gait- Normal/Bed Rest/Wheelchair (0 pts) Mental Status- Oriented to own ability (0 pts). Total Arriaga Fall Scale indicates. Assessment: 08:15 Reassessment: Dr. Wiley at bedside to assess patient. Minimal bleeding noted from zb medial right ankle. silver nitrate applied. no further bleeding at this time will continue to monitor. 08:25 General: no changes for previously document triage assessment . zb 09:16 Reassessment: Patient appears in no apparent distress at this time. Patient and/or zb family updated on plan of care and expected duration. Pain level reassessed. Patient is alert, oriented x 3, equal unlabored respirations, skin warm/dry/pink. no further bleeding noted. area dressed per provider order. pt discharged home with SO. Vital Signs: 08:19 BP 175 / 72; Pulse 96; Resp 18; Temp 98.7; Pulse Ox 100% ; Pain 0/10; zb 09:17 BP 127 / 68; Pulse 71; Resp 18; Temp 98.7; Pulse Ox 99% ; Pain 0/10; zb ED Course: 07:59 Patient arrived in ED. ds1 08:01 Paulo Wiley MD is Attending Physician. rn 08:19 Genia Matta RN is Primary Nurse. zb 08:22 Triage completed. zb 08:25 Arm band placed on Patient placed in an exam room, on a stretcher. zb 08:29 No provider procedures requiring assistance completed. Patient did not have IV access zb during this emergency room visit. 08:30 Patient has correct armband on for positive identification. Bed in low position. Call zb light in reach. Side rails up X 1. Pulse ox on. NIBP on. Door closed. Noise minimized. Warm blanket given. 09:15 Dressings: bandaid and yuli wrap applied to right ankle. zb Administered Medications: 08:20 Drug: Silver Nitrate Applicators 1 application Route: Topical; Site: affected area; zb 09:15 Follow up: Response: No adverse reaction zb Outcome: 08:57 Discharge ordered by . rn 09:18 Discharged to home ambulatory, with significant other. zb 09:18 Condition: good 09:18 Discharge instructions given to patient, Instructed on discharge instructions, follow up and referral plans. Demonstrated understanding of instructions, follow-up care. 09:19 Patient left the ED. zb Signatures: Romana Dominguez ds1 Paulo Wiley MD MD rn Brown, Zipporah, RN RN zb
--- NOTE | 2020-02-28 08:58 | EDPHYS ---
Physician Documentation [facility] Tr Name: Jacqueline Ramirez Age: 74 yrs Sex: Female : 1945 Arrival Date: 02/28/2020 Time: 07:59 Bed 20 Private MD: ED Physician Paulo Wiley HPI: 02/27 08:21 This 74 yrs old Female presents to ER via Unassigned with complaints of rn bleeding varicose vein. 08:22 The patient presents with bleeding. The complaints affect the right foot. Onset: The rn symptoms/episode began/occurred just prior to arrival. Modifying factors: The symptoms are alleviated by pressure. Severity of symptoms: At their worst the symptoms were moderate, in the emergency department the symptoms have resolved. The patient has not experienced similar symptoms in the past. Reports putting on compression stockings, thinks accidentally scratched a varicose vein, + mild to moderate bleeding, held pressure and put pressure dressing, now has mostly stopped, small trickle of blood. No sob or lightheadedness, not on blood thinners. . Historical: - Allergies: 08:22 No Known Drug Allergies; zb - Home Meds: 08:22 losartan 50 mg Oral tab 1 tab once daily [Active]; [place]-3 1000 mg Oral daily [Active]; zb - PMHx: 08:22 Hypertension; zb - PSHx: 08:22 None; zb - Immunization history:: Adult Immunizations unknown. - Social history:: Smoking status: Patient denies any tobacco usage or history of. - Family history:: not pertinent. - Hospitalizations: : No recent hospitalization is reported. ROS: 08:22 MS/extremity: Positive for bleeding. rn 08:24 Constitutional: Negative for fever, chills, and weight loss, Cardiovascular: Negative rn for chest pain, palpitations, and edema, Respiratory: Negative for shortness of breath, cough, wheezing, and pleuritic chest pain, Abdomen/GI: Negative for abdominal pain, nausea, vomiting, diarrhea, and constipation, Back: Negative for injury and pain, MS/Extremity: Negative for deformity, Skin: + scratch to RLE and bleeding Neuro: Negative for headache, weakness, numbness, tingling, and seizure. Exam: 08:24 Constitutional: This is a well developed, well nourished patient who is awake, alert, rn and in no acute distress. Cardiovascular: Regular rate and rhythm. No pulse deficits. Skin: warm, dry, equal pulses, small punctate wound over medial right ankle varicose vein, drops of blood. MS/ Extremity: Pulses equal, no cyanosis. Neurovascular intact. Full, normal range of motion. Equal circumference. Vital Signs: 08:19 BP 175 / 72; Pulse 96; Resp 18; Temp 98.7; Pulse Ox 100% ; Pain 0/10; zb 09:17 BP 127 / 68; Pulse 71; Resp 18; Temp 98.7; Pulse Ox 99% ; Pain 0/10; zb Procedures: 08:19 Performed Chemical cauterization. Small punctate wound on top of varicose vein rn cauterized using silver nitrate, single stick, tolerated well.. MDM: 08:01 Patient medically screened. rn 08:56 Differential diagnosis: bleeding varicose vein. Data reviewed: vital signs, nurses rn notes, and as a result, I will discharge patient. Counseling: I had a detailed discussion with the patient and/or guardian regarding: the historical points, exam findings, and any diagnostic results supporting the discharge/admit diagnosis, the need for outpatient follow up, to return to the emergency department if symptoms worsen or persist or if there are any questions or concerns that arise at home. Response to treatment: the patient's symptoms have resolved after treatment, and as a result, I will discharge patient. Special discussion: I discussed with the patient/guardian in detail that at this point there is no indication for admission to the hospital. It is understood, however, that if the symptoms persist or worsen the patient needs to return immediately for re-evaluation. 02/27 08:56 Order name: Wound dressing: band-aid then wrap; Complete Time: 09:15 rn Administered Medications: 08:20 Drug: Silver Nitrate Applicators 1 application Route: Topical; Site: affected area; zb 09:15 Follow up: Response: No adverse reaction zb Disposition: 02/28/20 08:57 Discharged to Home. 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 - Condition is Stable. - Discharge Instructions: Varicose Veins, Bleeding Varicose Veins. - Medication Reconciliation Form, Thank You Letter, Antibiotic Education, Prescription Opioid Use form. - Follow up: Private Physician; When: As needed; Reason: Recheck today's complaints, Re-evaluation by your physician. - Problem is new. - Symptoms are resolved. Signatures: Paulo Wiley MD MD rn Brown, ARTUR Cormier RN Corrections: (The following items were deleted from the chart) 08:24 08:22 The complaints affect the left foot, rn rn 09:19 08:57 02/28/2020 08:57 Discharged to Home. Impression: Varicose veins of right lower zb extremities with other complications - Bleeding. Condition is Stable. Forms are Medication Reconciliation Form, Thank You Letter, Antibiotic Education, Prescription Opioid Use. Follow up: Private Physician; When: As needed; Reason: Recheck today's complaints, Re-evaluation by your physician. Problem is new. Symptoms are resolved. rn
[2020-02-28 09:24] VITALS: TEMP 98.7
[2020-02-28 09:25] VITALS: BP 127/68; O2SAT 99
== END 2020-02-28 09:19 | disposition home or self-care (01) ==
LOC: ER 07:57
DX: I83.891 Varicose veins of right lower extremity with other complications (principal); I10 Essential (primary) hypertension
CPT/HCPCS: 99283

== ENCOUNTER 2020-11-27 08:02 | Emergency (ER) | payer OTHER ==
--- OUTSIDE RECORDS SUMMARY | 2020-11-27 08:04 | XMS REPORT | Continuity of Care Document ---
:1945 Author Organization [facility] t Address [address] [place] [address] Care Team Providers Name Role Phone Delfino PÉREZ, A Attending Clinician Problems This patient has no known problems. Allergies, Adverse Reactions, Alerts This patient has no known allergies or adverse reactions. Medications This patient has no known medications. Procedures This patient has no known procedures. Encounters Start End Encounter Admission Attending Care Care Encounter Source Date/Time Date/Time Type Type Clinicians Facility Department ID 2020-11-11 2020-11-11 Telephone VU Saleh [id number] 00:00:00 00:00:00 [facility] [id number] [place] [id number] [facility] [phone] nal [address] 2020-10-27 2020-10-27 Case VU Saleh [id number] 00:00:00 00:00:00 Management [facility] [id number] [place] [id number] [facility] [phone] nal [address] 2020-10-07 2020-10-07 Telephone VU [facility]h [id number] 00:00:00 00:00:00 [facility] [id number] [place] [id number] [facility] [phone] nal [address] Results This patient has no known results.
--- NOTE | 2020-11-27 09:07 | ER ---
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 Coronavirus screen: At this time, the client does not indicate any symptoms associated with coronavirus-19. Ebola Screen: Patient negative for fever greater than or equal to 101.5 degrees Fahrenheit, and additional compatible Ebola Virus Disease symptoms Patient denies exposure to infectious person. Patient denies travel to an Ebola-affected area in the 21 days before illness onset. No symptoms or risks identified at this time. Initial Sepsis Screen: Does the patient meet any 2 criteria? No. Patient's initial sepsis screen is negative. Does the patient have a suspected source of infection? No. Patient's initial sepsis screen is negative. Risk Assessment: Do you want to hurt yourself or someone else? Patient reports no desire to harm self or others. Onset of symptoms was November 27, 2020. 08:23 Method Of Arrival: Ambulatory iw 08:23 Acuity: NASRIN 3 iw Triage Assessment: 08:30 General: Appears in no apparent distress. comfortable, Behavior is cooperative, bp appropriate for age, anxious. Pain: Complains of pain in right ankle. EENT: No deficits noted. Neuro: No deficits noted. Cardiovascular: No deficits noted. Respiratory: No deficits noted. GI: No signs and/or symptoms were reported involving the gastrointestinal system. : No signs and/or symptoms were reported regarding the genitourinary system. Derm: SMALL BLEEDING VARICOSITY ON R MEDIAL ANKLE. Musculoskeletal: No deficits noted. Historical: - Allergies: 08:25 No Known Allergies; iw - Home Meds: 08:25 losartan 50 mg oral tab [Active]; iw - PMHx: 08:25 Hypertension; iw - PSHx: 08:26 hysterectomy; iw - Immunization history:: Client reports receiving the 2nd dose of the Covid vaccine. - Social history:: Smoking status: Patient denies any tobacco usage or history of. Screenin:28 Abuse screen: Denies threats or abuse. Denies injuries from another. Nutritional bp screening: No deficits noted. Tuberculosis screening: No symptoms or risk factors identified. Fall Risk None identified. Assessment: 08:30 General: SEE TRIAGE NOTE. bp 09:28 Reassessment: PT D/C HOME AMBULATORY WITH FAMILY, DX WITH BLEEDING VARICOSE VEIN. bp Vital Signs: 08:23 BP 133 / 65; Pulse 75; Resp 16; Temp 99.0; Pulse Ox 98% on R/A; iw ED Course: 08:04 Patient arrived in ED. am2 08:04 Martín Lima MD is Private Physician. am2 08:25 Triage completed. iw 08:27 Arm band placed on. iw 08:31 Lissy Tello FNP-C is PHCP. kb 08:31 Anthony Fields MD is Attending Physician. kb 09:18 Brian Morin, RN is Primary Nurse. bp 09:28 Patient has correct armband on for positive identification. Bed in low position. Call bp light in reach. Side rails up X2. Adult w/ patient. 09:28 No provider procedures requiring assistance completed. Patient did not have IV access bp during this emergency room visit. Wound care: to BLEEDING VARICOSITY located on right ankle was cleaned with soap and water, dressed with 4X4s, Patient tolerated well. Administered Medications: No medications were administered Outcome: 09:06 Discharge ordered by MD. kb 09:28 Discharged to home ambulatory, with family. bp 09:28 Condition: stable 09:28 Discharge instructions given to patient, Instructed on discharge instructions, follow up and referral plans. wound care, Demonstrated understanding of instructions, follow-up care, wound care. 09:30 Patient left the ED. bp Signatures: Lissy Tello FNP-C FNP-Malaika Lopez RN RN Mallory العلي am2 Brian Morin, ARTUR RN bp Corrections: (The following items were deleted from the chart) 08:26 08:25 PSHx: None; iw iw
--- NOTE | 2020-11-27 09:08 | EDPHYS ---
Physician Documentation [facility] Name: Jacqueline Ramirez Age: 75 yrs Sex: Female : 1945 Arrival Date: 11/27/2020 Time: 08:04 Bed 17 Private MD: Martní Lima E ED Physician Anthony Fields HPI: 11/27 08:51 This 75 yrs old Female presents to ER via Ambulatory with complaints of kb varicose vein bleeding. 08:51 Bleeding varicose vein. Onset: The symptoms/episode began/occurred this morning. kb Severity of symptoms: At their worst the symptoms were moderate in the emergency department the symptoms have resolved. The patient has experienced similar episodes in the past. The patient has not recently seen a physician. Patient reports varicose vein started bleeding this morning while in the shower. Patient has had this happen several times before. applied pressure dressing and brought her to the ER. Denies dizziness or lightheadedness. Historical: - Allergies: 08:25 No Known Allergies; iw - Home Meds: 08:25 losartan 50 mg oral tab [Active]; iw - PMHx: 08:25 Hypertension; iw - PSHx: 08:26 hysterectomy; iw - Immunization history:: Client reports receiving the 2nd dose of the Covid vaccine. - Social history:: Smoking status: Patient denies any tobacco usage or history of. ROS: 08:53 Constitutional: Negative for fever, chills, and weight loss. kb 08:53 Skin: Positive for bleeding vericose vein. 08:53 All other systems are negative. Exam: 08:53 Constitutional: This is a well developed, well nourished patient who is awake, alert, kb and in no acute distress. Head/Face: Normocephalic, atraumatic. ENT: Moist Mucous membranes Respiratory: Respirations even and unlabored. No increased work of breathing, no retractions or nasal flaring. Skin: Warm, dry with normal turgor. Normal color. MS/ Extremity: Pulses equal, no cyanosis. Neurovascular intact. Full, normal range of motion. Neuro: Awake and alert, GCS 15, oriented to person, place, time, and situation. Moves all extremities. Normal gait. Psych: Awake, alert, with orientation to person, place and time. Behavior, mood, and affect are within normal limits. Vital Signs: 08:23 BP 133 / 65; Pulse 75; Resp 16; Temp 99.0; Pulse Ox 98% on R/A; iw MDM: 08:31 Patient medically screened. kb 08:48 Data reviewed: vital signs, nurses notes. Data interpreted: Pulse oximetry: on room air kb is 98 %. Interpretation: normal. Counseling: I had a detailed discussion with the patient and/or guardian regarding: the historical points, exam findings, and any diagnostic results supporting the discharge/admit diagnosis, the need for outpatient follow up, a family practitioner, to return to the emergency department if symptoms worsen or persist or if there are any questions or concerns that arise at home. 08:53 ED course: No bleeding noted when dressing removed. kb 11/27 08:48 Order name: Wound Care: clean and dress ; Complete Time: 09:30 kb Administered Medications: No medications were administered Disposition: 17:11 Co-signature as Attending Physician, Anthony Fields MD. 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 - kb bleeding(11/27/20 09:07) Followup: kb - With: Emergency Department - When: As needed - Reason: Worsening of condition Followup: kb - With: Private Physician - When: 2 - 3 days - Reason: Recheck today's complaints, Continuance of care, Re-evaluation by your physician Discharge Instructions: - Discharge Summary Sheet kb - Varicose Veins kb Forms: - Medication Reconciliation Form kb - Thank You Letter kb - Antibiotic Education kb - Prescription Opioid Use kb Signatures: Lissy Tello FNP-C FNP-Malaika Lopez, RN RN Anthony Chambers MD MD ma2 Corrections: (The following items were deleted from the chart) 08:26 08:25 PSHx: None; iw iw 08:54 08:51 Patient reports varicose vein started bleeding this morning while in the shower. kb Patient has had this happen several times before. applied pressure dressing and brought her to the ER. . 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
[2020-11-27 09:35] VITALS: BP 133/65; TEMP 99; O2SAT 98
== END 2020-11-27 09:30 | disposition home or self-care (01) ==
LOC: ER 08:02
DX: I83.891 Varicose veins of right lower extremity with other complications (principal); I10 Essential (primary) hypertension
CPT/HCPCS: 99283

== ENCOUNTER 2021-02-09 05:40 | Emergency (ER) | payer OTHER ==
--- NOTE | 2021-02-09 06:15 | ER ---
Nurse's Notes [facility] Tr Name: Jacqueline Ramirez Age: 75 yrs Sex: Female : 1945 Arrival Date: 02/09/2021 Time: 05:42 Bed 28 Private MD: Diagnosis: Acute pharyngitis, unspecified Presentation: 02/09 05:47 Chief complaint: Patient states: sore throat, started this AM. Coronavirus screen: sore bs2 throat. Ebola Screen: No symptoms or risks identified at this time. Initial Sepsis Screen: Does the patient meet any 2 criteria? No. Patient's initial sepsis screen is negative. Does the patient have a suspected source of infection? No. Patient's initial sepsis screen is negative. Risk Assessment: Do you want to hurt yourself or someone else? Patient reports no desire to harm self or others. Onset of symptoms was February 09, 2021. 05:47 Method Of Arrival: Ambulatory bs2 05:47 Acuity: NASRIN 4 bs2 Triage Assessment: 05:50 General: Appears in no apparent distress. uncomfortable, obese, well groomed, well bs2 developed, well nourished, Behavior is calm, cooperative, appropriate for age. Pain: Complains of pain in sore throat. EENT: Reports difficulty swallowing. Historical: - Allergies: 05:50 No Known Allergies; bs2 - Home Meds: 05:50 losartan 50 mg Oral tab [Active]; [place]-3 1000 mg Oral daily [Active]; bs2 - PMHx: 05:50 Hypertension; bs2 - PSHx: 05:50 hysterectomy; bs2 - Immunization history:: Adult Immunizations not up to date, 3 vaccines. - Social history:: Smoking status: Patient denies any tobacco usage or history of. Screenin:00 Abuse screen: Denies threats or abuse. Nutritional screening: No deficits noted. On no kc4 prescribed diet Difficulty chewing/swallowing? Yes. Tuberculosis screening: No symptoms or risk factors identified. Never had TB. Possible symptoms: None Risk factors: None. Fall Risk None identified. No fall in past 12 months (0 pts). No secondary diagnosis (0 pts). No IV (0 pts). Ambulatory Aid- None/Bed Rest/Nurse Assist (0 pts). Gait- Normal/Bed Rest/Wheelchair (0 pts) Mental Status- Oriented to own ability (0 pts). Total Arriaga Fall Scale indicates No Risk (0-24 pts). Assessment: 06:04 General: Appears in no apparent distress. well groomed, Behavior is calm, cooperative, kc4 appropriate for age, Reports sore throat Denies fever, feeling ill, fatigue, chills. Pain: Complains of pain in throat Pain does not radiate. Pain currently is 4 out of 10 on a pain scale. at worst was 8 out of 10 on a pain scale. level that patient reports is acceptable is 0 out of 10 on a pain scale. Quality of pain is described as burning, stinging, Pain began suddenly, 1 hour ago. Is continuous, Alleviated by nothing. Also complains of decreased appetite, Goal of pain control is to be pain free. 06:04 Neuro: No deficits noted. Cardiovascular: No deficits noted. Respiratory: Airway is kc4 patent Respiratory effort is even, unlabored, Breath sounds are clear bilaterally. EENT: Throat is clear. 06:04 GI: No deficits noted. : No deficits noted. Derm: No deficits noted. Musculoskeletal: kc4 No deficits noted. 06:15 Reassessment: Patient appears in no apparent distress at this time. Swabbed for strep, cc4 benedict. well \T\ sent to lab. Vital Signs: 05:47 BP 170 / 76; Pulse 91; Resp 18; Temp 98.5; Pulse Ox 98% ; Weight 81.65 kg; Height 5 ft. bs2 2 in. (157.48 cm); Pain 9/10; 06:00 BP 157 / 70; Pulse 88; Resp 16; Temp 98.6; Pulse Ox 99% on R/A; Pain 4/10; kc4 05:47 Body Mass Index 32.92 (81.65 kg, 157.48 cm) bs2 ED Course: 05:42 Patient arrived in ED. bp1 05:50 Triage completed. bs2 05:50 Arm band placed on right wrist. bs2 05:54 Felicia Alvarez is Primary Nurse. kc4 06:00 No apparent distress. kc4 06:00 Patient has correct armband on for positive identification. Bed in low position. Call kc4 light in reach. Side rails up X 1. 06:00 No provider procedures requiring assistance completed. kc4 06:03 Agus Henao PA is PHCP. [place] 06:03 Anthony Fields MD is Attending Physician. [facility] 06:28 Patient did not have IV access during this emergency room visit. kc4 Administered Medications: No medications were administered Outcome: 06:14 Discharge ordered by . [facility] 06:28 Discharged to home ambulatory. kc4 06:28 Condition: stable 06:28 Discharge instructions given to patient, Instructed on discharge instructions, follow up and referral plans. Demonstrated understanding of instructions, follow-up care, medications, Prescriptions given X 1. 06:29 Patient left the ED. kc4 Signatures: Agus Henao PA PA Pat Hdez Bridget, RN RN bs2 Felicia Alvarez kc4 Jael Mccartney, RN RN cc4
--- NOTE | 2021-02-09 06:15 | EDPHYS ---
Physician Documentation [facility] Tr Name: Jacqueline Ramirez Age: 75 yrs Sex: Female : 1945 Arrival Date: 02/09/2021 Time: 05:42 Bed 28 Private MD: RYANN Physician Anthony Fields HPI: 02/09 06:12 This 75 yrs old Female presents to ER via Ambulatory with complaints of Sore jmm Throat. 06:12 The patient presents with sore throat. Onset: The symptoms/episode began/occurred jmm today. Modifying factors: The symptoms are alleviated by nothing. Associated signs and symptoms: Pertinent negatives cough, fever, rhinorrhea. This is a 75-year-old female with history of hypertension the presents emerge department with complaints of sore throat beginning this morning. Patient denies fever chills but states she does have some congestion and mucus which drains down her throat. Patient is immunized for coronavirus.. Historical: - Allergies: 05:50 No Known Allergies; bs2 - Home Meds: 05:50 losartan 50 mg Oral tab [Active]; [place]-3 1000 mg Oral daily [Active]; bs2 - PMHx: 05:50 Hypertension; bs2 - PSHx: 05:50 hysterectomy; bs2 - Immunization history:: Adult Immunizations not up to date, 3 vaccines. - Social history:: Smoking status: Patient denies any tobacco usage or history of. ROS: 06:12 Constitutional: Negative for fever, chills, and weight loss, Cardiovascular: Negative jmm for chest pain, palpitations, and edema, Respiratory: Negative for shortness of breath, cough, wheezing, and pleuritic chest pain. 06:12 ENT: Positive for sore throat. 06:12 All other systems are negative. Exam: 06:12 Constitutional: This is a well developed, well nourished patient who is awake, alert, jmm and in no acute distress. Head/Face: atraumatic. Eyes: EOMI, no conjunctival erythema appreciated 06:12 Neck: Trachea midline, Supple Chest/axilla: Normal chest wall appearance and motion. Cardiovascular: Regular rate and rhythm. No edema appreciated Respiratory: Normal respirations, no respiratory distress appreciated Abdomen/GI: Non distended, soft Back: Normal ROM Skin: General appearance color normal MS/ Extremity: Moves all extremities, no obvious deformities appreciated, no edema noted to the lower extremities Neuro: Awake and alert, normal gait Psych: Behavior is normal, Mood is normal, Patient is cooperative and pleasant 06:12 ENT: Posterior pharynx: Uvula: midline, erythema, that is mild. Vital Signs: 05:47 BP 170 / 76; Pulse 91; Resp 18; Temp 98.5; Pulse Ox 98% ; Weight 81.65 kg; Height 5 ft. bs2 2 in. (157.48 cm); Pain 9/10; 06:00 BP 157 / 70; Pulse 88; Resp 16; Temp 98.6; Pulse Ox 99% on R/A; Pain 4/10; kc4 05:47 Body Mass Index 32.92 (81.65 kg, 157.48 cm) bs2 MDM: 06:11 Patient medically screened. [facility] 06:13 Data reviewed: vital signs, nurses notes. Counseling: I had a detailed discussion with christin the patient and/or guardian regarding: the historical points, exam findings, and any diagnostic results supporting the discharge/admit diagnosis, lab results, the need for outpatient follow up, to return to the emergency department if symptoms worsen or persist or if there are any questions or concerns that arise at home. ED course: Patient is alert and patient is alert and nontoxic in appearance in the ED. I do not suspect Emely's or peritonsillar abscess. Will treat with oral antibiotics after a strep culture and rapid are drawn. Patient otherwise given strict return precautions. Patient understood agrees plan of care.. 02/09 06:11 Order name: Strep [place] Administered Medications: No medications were administered Disposition Summary: 02/09/21 06:14 Discharge Ordered Location: Home [facility] Condition: Stable [facility] Diagnosis - Acute pharyngitis, unspecified [facility] Followup: [facility] - With: Private Physician - When: 2 - 3 days - Reason: Recheck today's complaints, Continuance of care, Re-evaluation by your physician Discharge Instructions: - Discharge Summary Sheet christin - Pharyngitis [facility] Forms: - Medication Reconciliation Form [facility] - Thank You Letter [facility] - Antibiotic Education [facility] - Prescription Opioid Use [facility] Prescriptions: - Amoxicillin 875 mg Oral Tablet - take 1 tablet by ORAL route every 12 hours for 10 days; 20 tablet; Refills: 0, [facility] Product Selection Permitted Signatures: Dispatcher [employer] Agus Rodriguez PA PA jmm Smith, Bridget, RN RN bs2
[2021-02-09 06:35] VITALS: BP 157/70; TEMP 98.6; O2SAT 99
== END 2021-02-09 06:29 | disposition home or self-care (01) ==
LOC: ER 05:40
DX: J02.9 Acute pharyngitis, unspecified (principal); I10 Essential (primary) hypertension
CPT/HCPCS: 87070; 87081; 99282

== ENCOUNTER 2021-02-19 00:48 | Emergency (ER) | payer OTHER ==
[2021-02-19] MEDS ORDERED: dexAMETHasone 10 MG/ML VIAL ONE (02:22)
--- NOTE | 2021-02-19 03:39 | EDPHYS ---
Physician Documentation [facility] Name: Jacqueline Ramirez Age: 75 yrs Sex: Female : 1945 Arrival Date: 02/19/2021 Time: 00:51 Bed 26 Private MD: ED Physician Prakash Jorge HPI: 02/19 03:39 This 75 yrs old Female presents to ER via Ambulatory with complaints of Sore pm1 Throat. 03:39 The patient presents with sore throat. The patient describes throat pain as raw, pm1 scratchy. Onset: The symptoms/episode began/occurred 2 week(s) ago. Severity of symptoms: in the emergency department the symptoms are unchanged. Modifying factors: The symptoms are alleviated by nothing, the symptoms are aggravated by swallowing, Patient's oral intake status: good unaware of sick contact. Associated signs and symptoms: Pertinent positives: Pain with swallowing, Pertinent negatives chest pain, cough, fever, shortness of breath. The patient has been recently seen by a physician: with similar presenting complaints, was given a prescription for antibiotics. Historical: - Allergies: 01:24 No Known Allergies; sj1 - Home Meds: 01:24 losartan 50 mg Oral tab [Active]; sj1 - PMHx: 01:24 Hypertension; sj1 - Immunization history:: Adult Immunizations . - Social history:: Smoking status: Patient denies any tobacco usage or history of. Patient/guardian denies using alcohol, street drugs. ROS: 03:39 Constitutional: Negative for fever, chills, and weight loss. pm1 03:39 Cardiovascular: Negative for chest pain, palpitations, and edema, Respiratory: Negative for shortness of breath, cough, wheezing, and pleuritic chest pain, Abdomen/GI: Negative for abdominal pain, nausea, vomiting, diarrhea, and constipation, Back: Negative for injury and pain, MS/Extremity: Negative for injury and deformity, Skin: Negative for injury, rash, and discoloration. 03:39 ENT: Positive for sore throat, Negative for ear pain. 03:39 All other systems are negative. Exam: 03:39 Constitutional: This is a well developed, well nourished patient who is awake, alert, pm1 and in no acute distress. Head/Face: Normocephalic, atraumatic. 03:39 Skin: Warm, dry with normal turgor. Normal color with no rashes, no lesions, and no evidence of cellulitis. MS/ Extremity: Pulses equal, no cyanosis. Neurovascular intact. Full, normal range of motion. 03:39 ENT: Exam is negative for acute changes, External ear(s): are unremarkable, Ear canal(s): are normal, Mouth: Lips: normal, moist, Oral mucosa: normal, pink and intact, moist, Posterior pharynx: Tonsils: bilaterally enlarged, with erythema, no exudate, no ulcerations, erythema, that is mild, exudate, is not appreciated, peritonsillar mass, is not appreciated. 03:39 Cardiovascular: Exam negative for acute changes, Rate: normal, Rhythm: regular, Pulses: no pulse deficits are appreciated. 03:39 Respiratory: Exam negative for acute changes, respiratory distress, shortness of breath, Breath sounds: are clear throughout. 03:39 Neuro: Exam negative for acute changes, Orientation: is normal, Mentation: is normal, Motor: is normal, moves all fours. Vital Signs: 01:22 BP 152 / 75; Pulse 80; Resp 18 S; Temp 98.1; Pulse Ox 98% on R/A; Weight 81.65 kg (R); sj1 Height 5 ft. 2 in. (157.48 cm); Pain 10/10; 03:47 BP 169 / 82; Pulse 69; Resp 15 S; Temp 97.7(O); Pulse Ox 99% on R/A; Pain 1/10; sj1 01:22 Body Mass Index 32.92 (81.65 kg, 157.48 cm) [facility] MDM: 01:29 Patient medically screened. pm1 03:37 Data reviewed: vital signs. Data interpreted: Pulse oximetry: on room air is 98 %. pm1 Interpretation: normal. Counseling: I had a detailed discussion with the patient and/or guardian regarding: the historical points, exam findings, and any diagnostic results supporting the discharge/admit diagnosis, lab results, the need for outpatient follow up, to return to the emergency department if symptoms worsen or persist or if there are any questions or concerns that arise at home. 02/19 01:46 Order name: Strep pm1 02/19 01:46 Order name: Flu; Complete Time: 02:49 pm1 02/19 02:22 Order name: SARS-COV-2 RT PCR; Complete Time: 03:19 EDMS Administered Medications: 02:02 Drug: Decadron (dexamethasone) 10 mg Route: IM; Site: right deltoid; sj1 03:20 Follow up: Response: No adverse reaction sj1 03:19 Drug: GI Cocktail without - (Maalox Suspension 30 ml, Lidocaine Liquid 2 % 15 sj1 ml) Route: PO; 03:20 Follow up: Response: No adverse reaction sj1 Disposition: 05:47 Co-signature as Attending Physician, Prakash Jorge MD. [facility] Disposition Summary: 02/19/21 03:38 Discharge Ordered Location: Home pm1 Problem: new pm1 Symptoms: have improved pm1 Condition: Stable pm1 Diagnosis - Acute pharyngitis, unspecified pm1 Followup: pm1 - With: Emergency Department - When: As needed - Reason: Worsening of condition Followup: pm1 - With: Private Physician - When: 2 - 3 days - Reason: Recheck today's complaints, Continuance of care, Re-evaluation by your physician Discharge Instructions: - Discharge Summary Sheet pm1 - Pharyngitis pm1 Forms: - Medication Reconciliation Form pm1 - Thank You Letter pm1 - Antibiotic Education pm1 - Prescription Opioid Use pm1 Signatures: Dispatcher [employer] EDMS Mio Miner, KISHAN HOMICIDE SQUAD CAPTAIN pm1 Prakash Jorge MD MD [facility] Lita Galvez RN RN sj1 Corrections: (The following items were deleted from the chart) 01:25 01:24 Home Meds: Lisinopril Oral once daily; 1 sj1 02:22 01:46 CORONAVIRUS+MR.LAB.BRZ ordered. EDKS EDKS
--- NOTE | 2021-02-19 03:39 | ER ---
Nurse's Notes [facility] Name: Jacqueline Ramirez Age: 75 yrs Sex: Female : 1945 Arrival Date: 02/19/2021 Time: 00:51 Bed 26 Private MD: Diagnosis: Acute pharyngitis, unspecified Presentation: 02/19 01:22 Chief complaint: Patient states: sore throat, diff swallowing, SOB while lying flat, sj1 states "recently dx with throat infection and completed amoxicillin last night". Coronavirus screen: Vaccine status: Patient reports receiving the 2nd dose of the covid vaccine. Ebola Screen: Patient negative for fever greater than or equal to 101.5 degrees Fahrenheit, and additional compatible Ebola Virus Disease symptoms Patient denies exposure to infectious person. Patient denies travel to an Ebola-affected area in the 21 days before illness onset. No symptoms or risks identified at this time. Initial Sepsis Screen: Does the patient meet any 2 criteria? No. Patient's initial sepsis screen is negative. Does the patient have a suspected source of infection? No. Patient's initial sepsis screen is negative. Risk Assessment: Do you want to hurt yourself or someone else? Patient reports no desire to harm self or others. Onset of symptoms was February 18, 2021. 01:22 Method Of Arrival: Ambulatory rust 01:22 Acuity: NASRIN 4 sj1 Triage Assessment: 01:24 General: Appears in no apparent distress. Behavior is calm, cooperative, appropriate sj1 for age. Pain: Complains of pain in throat Pain does not radiate. Pain currently is 10 out of 10 on a pain scale. at worst was 10 out of 10 on a pain scale. level that patient reports is acceptable is 2 out of 10 on a pain scale. EENT: Reports pain when swallowing. Neuro: No deficits noted. Cardiovascular: No deficits noted. Respiratory: Reports shortness of breath supine. GI: No deficits noted. : No deficits noted. Derm: No deficits noted. Musculoskeletal: No deficits noted. Historical: - Allergies: :24 No Known Allergies; sj1 - Home Meds: 01:24 losartan 50 mg Oral tab [Active]; sj1 - PMHx: 01:24 Hypertension; sj1 - Immunization history:: Adult Immunizations . - Social history:: Smoking status: Patient denies any tobacco usage or history of. Patient/guardian denies using alcohol, street drugs. Screenin:26 Abuse screen: Denies threats or abuse. Denies injuries from another. Nutritional sj1 screening: No deficits noted. Tuberculosis screening: No symptoms or risk factors identified. Fall Risk None identified. Assessment: :26 EENT: Throat. sj1 01:27 Respiratory: Trachea midline Respiratory effort is even, unlabored, Respiratory pattern sj1 is regular, symmetrical. 01:27 Respiratory: Airway is patent. sj1 03:23 Reassessment: Patient appears in no apparent distress at this time. No changes from sj1 previously documented assessment. Patient and/or family updated on plan of care and expected duration. Pain level reassessed. General: Appears in no apparent distress. comfortable, Behavior is calm, cooperative, appropriate for age. Neuro: No deficits noted. Cardiovascular: No deficits noted. Respiratory: Breath sounds are clear. GI: Reports acid reflux. : No deficits noted. Derm: No deficits noted. Musculoskeletal: No deficits noted. 03:24 Reassessment: VORBAC from Mio SALDIVAR to administer GI cocktail for "acid reflux". sj1 Vital Signs: 01:22 BP 152 / 75; Pulse 80; Resp 18 S; Temp 98.1; Pulse Ox 98% on R/A; Weight 81.65 kg (R); sj1 Height 5 ft. 2 in. (157.48 cm); Pain 10/10; 03:47 BP 169 / 82; Pulse 69; Resp 15 S; Temp 97.7(O); Pulse Ox 99% on R/A; Pain 1/10; sj1 01:22 Body Mass Index 32.92 (81.65 kg, 157.48 cm) 1 ED Course: 00:51 Patient arrived in ED. bp1 01:24 Triage completed. sj1 01:24 Arm band placed on. sj1 01:26 Patient has correct armband on for positive identification. sj1 01:26 No provider procedures requiring assistance completed. sj1 01:27 Mio Miner NP is PHCP. pm1 01:27 Prakash Jorge MD is Attending Physician. pm1 01:49 Strep Sent. sj1 02:02 Flu Sent. sj1 03:48 Patient did not have IV access during this emergency room visit. sj1 Administered Medications: 02:02 Drug: Decadron (dexamethasone) 10 mg Route: IM; Site: right deltoid; sj1 03:20 Follow up: Response: No adverse reaction sj1 03:19 Drug: GI Cocktail without - (Maalox Suspension 30 ml, Lidocaine Liquid 2 % 15 sj1 ml) Route: PO; 03:20 Follow up: Response: No adverse reaction sj1 Outcome: 03:38 Discharge ordered by MD. pm1 03:48 Discharged to home ambulatory. sj1 03:48 Condition: stable 03:48 Discharge instructions given to patient, Instructed on discharge instructions, follow up and referral plans. Demonstrated understanding of instructions, follow-up care. 03:48 Patient left the ED. sj1 Signatures: Mio Miner NP MAINTENANCE ENGINEER [employer]IL [employer]ELD pm1 Pat Hoover Sade RN RN sj1 Corrections: (The following items were deleted from the chart) 01:25 01:24 Home Meds: Lisinopril Oral once daily; sj1 sj1 02:22 02:02 CORONAVIRUS+ drawn and sent. 1 EDMS
[2021-02-19] MEDS ORDERED: MAGNES/ALUMIN/SIMET 30ML UCUP ONE (03:43)
[2021-02-19] MEDS ORDERED: LIDOCAINE VISCOUS 2% SOLN 15 ML UDC ONE (03:43)
[2021-02-19 03:58] VITALS: BP 169/82; TEMP 97.7; O2SAT 99
== END 2021-02-19 03:48 | disposition home or self-care (01) ==
LOC: ER 00:48
DX: J02.9 Acute pharyngitis, unspecified (principal); I10 Essential (primary) hypertension; Z20.822 Contact with and (suspected) exposure to COVID-19
CPT/HCPCS: 87070; 87081; 87804 ×2; 96372; 99283; U0003; J1100

== ENCOUNTER 2021-04-08 19:14 | Emergency (ER) | payer OTHER ==
--- OUTSIDE RECORDS SUMMARY | 2021-04-08 19:17 | XMS REPORT | Continuity of Care Document ---
:1945 Author Organization [facility] t Address [address] [place] [address] Care Team Providers Name Role Phone Harley PÉREZ, A Attending Clinician Lab, Fam Pob I Attending Clinician Unavailable HARLEY, Nicole Attending Clinician Unavailable Doctor Unassigned, Name Attending Clinician Unavailable Provider, Urgent Care Attending Clinician Unavailable Anene REFRIGERATED CARGO CLERK Attending Clinician ANENE Attending Clinician Unavailable Payers Payer Name Policy Type Policy Number Effective Date Expiration Date S ource Problems Condition Condition Condition Status Onset Resolution Last Treating Co mments Source Name Details Category Date Date Treatment Clinician Date Prediabete Prediabete Disease Active U nivers s s 10-17 ity of 00:00: [address] Mixed Mixed Disease Active Univers hyperlipid hyperlipid 10-17 it y of emia emia 00:00: [address] No known No known Disease Unive rs active active ity of problems problems [facility] Hypertensi Hypertensi Disease Active U dianneers on on [facility] Seasonal Seasonal Disease Active [facility] Arthritis Disease Active Uni vers [facility] Allergies, Adverse Reactions, Alerts Allergy Allergy Status Severity Reaction(s) Onset Inactive Treating Comm ents Source Name Type Date Date Clinician NO KNOWN Drug Active Univers ALLERGIE Class ity of S [facility] Social History Social Habit Start Date Stop Date Quantity Comments Source Exposure to Not sure [facility] SARS-CoV-2 [facility] (event) [place] Tobacco use and 2020-10-17 2020-10-17 Never used Universit y of exposure 00:00:00 00:00:00 [facility] Alcohol intake 2020-10-17 2020-10-17 Lifetime University of 00:00:00 00:00:00 non-drinker [place] [facility]finding[facility] Sex Assigned At [birth year] Universit y of 00:00:00 00:00:00 [facility] Smoking Status Start Date Stop Date Source Never smoker [facility] Unknown if ever smoked [facility] Medications Ordered Filled Start Stop Current Ordering Indication Dosage Frequency Signature Comments Components Source Medication Medication Date Date Medication? Clinician (SIG) Name Name rosuvastati Yes [id number] 10mg Take 1 Univers n 10 mg 7-09 tablet by ity of tablet 00:00: mouth at [place] 00 bedtime. Medical Branch rosuvastati Yes [id number] 10mg Take 1 Univers n 10 mg 6-24 tablet by ity of tablet 00:00: mouth at [place] 00 bedtime. Medical Branch rosuvastati 2020- No [id number] 10mg Take 1 Univers n 10 mg 6-24 07-09 tablet by ity of tablet 00:00: 00:00 mouth at [place] 00 :00 bedtime. Medical Branch ampicillin 2020- No [id number] 500mg Take 1 Univers 500 mg 6-14 10-25 capsule by ity of capsule 00:00: 04:59 mouth [place] 00 :00 every 8 Medical (eight) Branch hours for 7 days. Magnesium Yes 250mg Take 250 Uni vers 250 mg Tab 6-01 mg by ity of 19:21: mouth [place] 17 daily. Medical Branch Magnesium Yes 250mg Take 250 Uni vers 250 mg Tab 6-01 mg by ity of 19:21: mouth [place] 17 daily. Medical Branch Magnesium Yes 250mg Take 250 Uni vers 250 mg Tab 6-01 mg by ity of 19:21: mouth [place] 17 daily. Medical Branch Magnesium Yes 250mg Take 250 Uni vers 250 mg Tab 6-01 mg by ity of 19:21: mouth [place] 17 daily. Medical Branch Magnesium Yes 250mg Take 250 Uni vers 250 mg Tab 6-01 mg by ity of 19:21: mouth [place] 17 daily. Medical Branch Magnesium 2021-0 Yes 250mg Take 250 Uni vers 250 mg Tab 6-01 mg by ity of 19:21: mouth [place] 17 daily. Medical Branch Magnesium Yes 250mg Take 250 Uni vers 250 mg Tab 6-01 mg by ity of 19:21: mouth [place] 17 daily. Medical Branch Magnesium Yes 250mg Take 250 Uni vers 250 mg Tab 6-01 mg by ity of 19:21: mouth [place] 17 daily. Medical Branch Magnesium Yes 250mg Take 250 Uni vers 250 mg Tab 6-01 mg by ity of 19:21: mouth [place] 17 daily. Medical Branch Magnesium Yes 250mg Take 250 Uni vers 250 mg Tab 6-01 mg by ity of 19:21: mouth [place] 17 daily. Medical Branch Magnesium Yes 250mg Take 250 Uni vers 250 mg Tab 6-01 mg by ity of 19:21: mouth [place] 17 daily. Medical Branch benzonatate 2020- No [id number] 100mg Take 1 Univers (TESSALON 08-30-12 capsule by ity of ESTELA) 100 00:00: 04:59 mouth 3 [place] mg capsule 00 :00 (three) Medica l times Branch daily for 14 days. amoxicillin 2020- No [id number] 1{tbl} Take 1 Univers -clavulanat 08-30 05-05 tablet by it y of e 00:00: 04:59 mouth 2 [place] (AUGMENTIN) 00 :00 (two) Medical 875-125 mg times Branch per tablet daily for 7 days. losartan 50 Yes 50mg Take 50 mg Univers mg tablet 4-08 by mouth ity of 00:00: daily. Medical Branch losartan 50 Yes 50mg Take 50 mg Univers mg tablet 4-08 by mouth ity of 00:00: daily. Medical Branch losartan 50 0 Yes 50mg Take 50 mg Univers mg tablet 4-08 by mouth ity of 00:00: daily. Medical Branch losartan 50 0 Yes 50mg Take 50 mg Univers mg tablet 4-08 by mouth ity of 00:00: daily. Medical [place] losartan 50 Yes 50mg Take 50 mg Univers mg tablet 4-08 by mouth ity of 00:00: daily. [place] [facility] losartan 50 Yes 50mg Take 50 mg Univers mg tablet 4-08 by mouth ity of 00:00: daily. [place] [facility] Branch losartan 50 0 Yes 50mg Take 50 mg Univers mg tablet 4-08 by mouth ity of 00:00: daily. [place] [facility] losartan 50 0 Yes 50mg Take 50 mg Univers mg tablet 4-08 by mouth ity of 00:00: daily. [place] [facility] losartan 50 Yes 50mg Take 50 mg Univers mg tablet 4-08 by mouth ity of 00:00: daily. [place] [facility] losartan 50 Yes 50mg Take 50 mg Univers mg tablet 4-08 by mouth ity of 00:00: daily. [place] [facility] losartan 50 Yes 50mg Take 50 mg Univers mg tablet 4-08 by mouth ity of 00:00: daily. [address] No known No Univers medications ity [facility] Vital Signs Vital Name Observation Time Observation Value Comments Source Systolic blood 2020-10-04 19:11:00 122 mm[Hg] Univer sity of [facility] Diastolic blood 2020-10-04 19:11:00 60 mm[Hg] Unive rsity of [facility] Heart rate 2020-10-04 19:11:00 82 /min Universi ty [facility] Body height 2020-10-04 19:11:00 [facility] Body weight 2020-10-04 19:11:00 86[facility]637 [facility] BMI 2020-10-04 19:11:00 34.93 kg/m2 [facility] Systolic blood 2020-08-30 18:06:00 154 mm[Hg] Univer sity of [facility] Diastolic blood 2020-08-30 18:06:00 81 mm[Hg] Unive rsity of [facility] Heart rate 2020-08-30 18:06:00 80 /min Universi ty [facility] Body temperature 2020-08-30 18:06:00 37.06 Angie [facility] Body height 2020-08-30 18:06:00 [facility]5 [facility] Body weight 2020-08-30 18:06:00 83.915 kg [facility] BMI 2020-08-30 18:06:00 33.84 kg/m2 [facility] Oxygen saturation in 2020-08-30 18:06:00 96 /min [facility] Arterial blood by [facility] Pulse oximetry Branch Procedures Procedure Date / Time Performed Performing Clinician Sour e ASSIGNMENT OF BENEFITS 2020-10-04 18:52:56 Doctor Unassigned, No [facility] Name Medical Branch Encounters Start End Encounter Admission Attending Care Care Encounter Source Date/Time Date/Time Type Type Clinicians Facility Department ID 2020-11-11 2020-11-11 Telephone VU Souza [id number] 00:00:00 00:00:00 [facility] [id number] [place] [id number] Professio [phone] [place] [address] [address] One 2020-11-11 2020-11-11 Telephone VU Souza [id number] Univers 00:00:00 00:00:00 [facility] [id number] ity of [place] [id number] Dave as Professio [phone] [address] Office [address] [facility] 2020-10-27 2020-10-27 Case VU Souza [id number] Univers 00:00:00 00:00:00 Management [facility] [id number] ity of [place] [id number] Dave as Professio [phone] [address] Office [address] [facility] 2020-10-27 2020-10-27 Case VU Souza [id number] 00:00:00 00:00:00 Management [facility] [id number] [place] [id number] Professio [phone] [place] [address] [address] One 2020-10-17 2020-10-17 Case VU Souza [id number] Univers 00:00:00 00:00:00 Management [facility] [id number] ity of [place] [id number] Dave as Professio [phone] [address] Office [facility] One 2020-10-07 2020-10-[address] [facility] [id number] Univers 00:00:00 00:00:00 [facility] [id number] ity of [place] [id number] Dave as Professio [phone] [address] Office [facility] One 2020-10-07 2020-10-[address] [facility] [id number] 00:00:00 00:00:00 [facility] [id number] [place] [id number] Professio [phone] [address] One 2020-10-05 2020-10-05 Senior Computer Specialist Lab, Adc Fam Pob I [facility] [id number] Univers 08:08:11 08:28:11 Visit Luz Elena Souza Health [id number] 0 ity of [place] [id number] Dave as Professio [phone] [address] One 2020-10-05 2020-10-05 Outpatient R [facility] [id number] Univers 08:20:00 08:20:00 [id number] ity of [facility] 2020-10-05 2020-10-05 [facility] [id number] Univers 08:20:00 08:20:00 WONDIFUL ity o f [facility] 2020-10-04 2020-10-04 [facility] [id number] Univers 13:54:48 14:57:48 Visit [facility] [id number] ity of [place] [id number] Dave as Professio [phone] [address] Office [facility] One 2020-10-04 2020-10-04 Outpatient Cary SOUZA [facility] [id number] Univers 14:30:00 14:30:00 WONDIFUL maximilian o f [facility] 2020-10-04 2020-10-04 Orders Doctor DEENA [id number] Univers 00:00:00 00:00:00 Only Unassigned, ANNIE [id number] ity of [place] [facility] [id number] Dave as [phone] [address] 2020-08-30 2020-08-30 Urgent Provider, [facility] [id number] Univers 13:01:31 14:02:20 Marilynn Sharp [facility] [id number] ity of [place] [id number] Dave as Professio [phone] [address] Office Building One 2020-08-30 2020-08-30 Outpatient Cary ROUSE [facility] [id number] Univers 13:00:00 13:00:00 MARILYNN yao [facility] Results This patient has no known results.
[2021-04-08 20:55] LABS: Absolute Lymphocytes (CBC) 1.8 K/uL (0.7-4.9); Basophils % 0.4 % (0-1.3); Hematocrit 42.7 % (36.0-45.0); Lymphocytes % 26.8 % (15.3-44.8); MPV 8.1 fL (7.6-11.3); RBC Red Blood Cell Count 4.88 M/uL (3.86-4.86)
[2021-04-08 20:57] LABS: Protime INR 0.96
--- NOTE | 2021-04-08 21:10 | RAD REPORT ---
EXAM DESCRIPTION: Chao Single View04/08/2021 8:56 pm CLINICAL HISTORY: Dizziness COMPARISON: 2019 FINDINGS: The lungs appear clear of acute infiltrate. The heart is normal size IMPRESSION: No acute abnormalities displayed
[2021-04-08] MEDS ORDERED: MECLIZINE HCL 12.5 MG TAB ONE (21:11)
[2021-04-08] MEDS ORDERED: guaiFENesin 100 MG/5 ML UCUP ONE (21:11)
[2021-04-08 21:15] LABS: ALT/SGPT 25 U/L (12-78); AST/SGOT 16 U/L (15-37); Albumin 3.4 g/dL (3.4-5.0); Alkaline Phosphatase 144 U/L (45-117); BUN Blood Urea Nitrogen 14 mg/dL (7-18); Bicarbonate 28 mmol/L (21-32); Bilirubin Direct < 0.1 mg/dL (0-0.2); Bilirubin Total 0.2 mg/dL (0.2-1.0); Glucose Level 133 mg/dL (74-106); Magnesium 2.2 mg/dL (1.8-2.4); NT PRO-BNP 197 pg/mL (<125); Potassium 3.8 mmol/L (3.5-5.1); Protein, Total 7.4 g/dL (6.4-8.2); Sodium Level 144 mmol/L (136-145); Troponin (Emerg Dept Use Only) < 0.02 ng/mL (0.0-0.045)
[2021-04-08 21:41] LABS: SARS-COV-2 RT PCR NEGATIVE (NEGATIVE)
--- NOTE | 2021-04-08 21:46 | RAD REPORT ---
EXAM DESCRIPTION: CT - Head Brain Wo Cont - 04/08/2021 9:37 pm CLINICAL HISTORY: Dizziness COMPARISON: 2014 TECHNIQUE: Computed axial tomography of the head was obtained. IV contrast was not requested. All CT scans are performed using dose optimization technique as appropriate and may include automated exposure control or mA/KV adjustment according to patient size. FINDINGS: An intracranial bleed is not seen . The ventricles are normal in caliber. No extra-axial fluid collection is noted. Empty sella turcica is present Mild low-density areas within periventricular, deep and subcortical white matter likely represent isc hemic changes secondary to small vessel disease. Fluid within the sinuses/ mastoids is not seen. IMPRESSION: No acute intracranial abnormality is seen. If patient's symptoms persist MRI of the bra in would be recommended.
--- NOTE | 2021-04-08 22:58 | EDPHYS ---
Physician Documentation [facility] Name: Jacqueline Ramirez Age: 75 yrs Sex: Female : 1945 Arrival Date: 04/08/2021 Time: 19:16 Bed 14 Private MD: ED Physician Prakash Jorge HPI: 04/08 20:19 This 75 yrs old Female presents to ER via Ambulatory with complaints of pm1 Dizziness. 20:19 The patient presents with sense of spinning, vertigo. Onset: The symptoms/episode pm1 began/occurred today. Context:. Modifying factors: The symptoms are alleviated by holding head still, the symptoms are aggravated by movement of head. Associated signs and symptoms: Pertinent positives: bilateral ear pain, nasal congestion. Severity of symptoms: in the emergency department the symptoms are worse. The patient has not experienced similar symptoms in the past. The patient has not recently seen a physician. Historical: - Allergies: 20:12 No Known Allergies; vg1 - Home Meds: 20:12 losartan 50 mg Oral tab [Active]; [place]-3 1000 mg Oral daily [Active]; vg1 - PMHx: 20:12 Hypertension; vg1 - Immunization history:: Client reports receiving the 2nd dose of the Covid vaccine, and booster. - Social history:: Smoking status: Patient denies any tobacco usage or history of. ROS: 20:19 Constitutional: Negative for fever, chills, and weight loss, Eyes: Negative for injury, pm1 pain, redness, and discharge. 20:19 Neck: Negative for injury, pain, and swelling, Cardiovascular: Negative for chest pain, palpitations, and edema, Respiratory: Negative for shortness of breath, cough, wheezing, and pleuritic chest pain, Abdomen/GI: Negative for abdominal pain, nausea, vomiting, diarrhea, and constipation, Back: Negative for injury and pain, MS/Extremity: Negative for injury and deformity, Skin: Negative for injury, rash, and discoloration, Neuro: Negative for headache, weakness, numbness, tingling, and seizure. 20:19 ENT: Positive for ear pain, rhinorrhea, Negative for sore throat. 20:19 All other systems are negative. Exam: 20:19 Constitutional: This is a well developed, well nourished patient who is awake, alert, pm1 and in no acute distress. Head/Face: Normocephalic, atraumatic. 20:19 Skin: Warm, dry with normal turgor. Normal color with no rashes, no lesions, and no evidence of cellulitis. MS/ Extremity: Pulses equal, no cyanosis. Neurovascular intact. Full, normal range of motion. 20:19 Eyes: Exam is negative for acute changes, Extraocular movements: intact throughout, Conjunctiva: no acute changes, no injection, Sclera: no acute changes, icterus, is not appreciated, Nystagmus: horizontal with looking rightwards. 20:19 Cardiovascular: Exam negative for acute changes, Rate: normal, Rhythm: regular, Pulses: no pulse deficits are appreciated. 20:19 Cardiovascular: Heart sounds: normal, normal S1and S2. 20:19 Respiratory: Exam negative for acute changes, respiratory distress, shortness of breath, Breath sounds: are clear throughout. 20:19 Abdomen/GI: Inspection: abdomen appears normal, Palpation: abdomen is soft and non-tender, in all quadrants. 20:19 Neuro: Exam negative for acute changes, Orientation: is normal, Mentation: is normal, Cranial nerves: CN II- XII are normal as tested, Cerebellar function: normal finger to nose testing, Motor: moves all fours, strength is 5/5 in all extremities, Sensation: is normal, no obvious gross deficits. Vital Signs: 20:09 BP 170 / 95; Pulse 89; Resp 16; Temp 98.5; Pulse Ox 98% ; Weight 79.38 kg; Height 5 ft. vg1 2 in. (157.48 cm); Pain 10/10; 22:00 BP 149 / 67; Pulse 77; Resp 16 S; Pulse Ox 98% on R/A; bb 23:09 BP 142 / 70; Pulse 74; Resp 20 S; Temp 98.1(O); Pulse Ox 98% on R/A; bb 20:09 Body Mass Index 32.01 (79.38 kg, 157.48 cm) vg1 MDM: 20:31 Patient medically screened. pm1 22:56 Data reviewed: vital signs. Data interpreted: Pulse oximetry: on room air is 98 %. pm1 Interpretation: normal. Counseling: I had a detailed discussion with the patient and/or guardian regarding: the historical points, exam findings, and any diagnostic results supporting the discharge/admit diagnosis, lab results, radiology results, the need for outpatient follow up, to return to the emergency department if symptoms worsen or persist or if there are any questions or concerns that arise at home. 04/08 20:13 Order name: Strep; Complete Time: 21:46 vg1 04/08 20:15 Order name: COVID-19/FLU A+B (Document "Date of Onset" if Symptomatic); Complete Time: pm1 21:46 04/08 20:15 Order name: Basic Metabolic Panel; Complete Time: 21:46 pm1 04/08 20:15 Order name: CBC with Diff; Complete Time: 21:46 pm1 04/08 20:15 Order name: LFT's; Complete Time: 21:46 pm1 04/08 20:15 Order name: Magnesium; Complete Time: 21:46 pm1 04/08 20:15 Order name: NT PRO-BNP; Complete Time: 21:46 pm1 04/08 20:15 Order name: PT-INR; Complete Time: 21:46 pm1 04/08 20:15 Order name: Troponin (emerg Dept Use Only); Complete Time: 21:46 pm1 04/08 20:15 Order name: XRAY Chest (1 view); Complete Time: 21:46 pm1 04/08 20:15 Order name: CT Head Brain wo Cont; Complete Time: 21:50 pm1 04/08 21:23 Order name: Throat Culture EDUT 04/08 20:15 Order name: EKG; Complete Time: 20:24 pm1 04/08 20:15 Order name: Cardiac monitoring; Complete Time: 21:09 pm1 04/08 20:15 Order name: EKG - Nurse/Tech; Complete Time: 21:09 pm1 04/08 20:15 Order name: IV Saline Lock; Complete Time: 20:25 pm1 04/08 20:15 Order name: Labs collected and sent; Complete Time: 20:25 pm1 04/08 20:15 Order name: O2 Per Protocol; Complete Time: 20:16 pm1 04/08 20:15 Order name: O2 Sat Monitoring; Complete Time: 20:16 pm1 Administered Medications: 21:13 Drug: Meclizine 50 mg Route: PO; bb 22:18 Follow up: Response: No adverse reaction bb 21:13 Drug: guaiFENesin Liquid 5 ml Route: PO; bb 22:18 Follow up: Response: No adverse reaction bb Disposition: 04/09 05:17 Co-signature as Attending Physician, Prakash Jorge MD. [email or web address] Disposition Summary: 04/08/21 22:56 Discharge Ordered Location: Home pm1 Problem: new pm1 Symptoms: have improved pm1 Condition: Stable pm1 Diagnosis - Benign paroxysmal vertigo pm1 Followup: pm1 - With: Emergency Department - When: As needed - Reason: Worsening of condition Followup: pm1 - With: Private Physician - When: 2 - 3 days - Reason: Recheck today's complaints, Continuance of care, Re-evaluation by your physician Discharge Instructions: - Discharge Summary Sheet pm1 - Benign Positional Vertigo pm1 Forms: - Medication Reconciliation Form pm1 - Thank You Letter pm1 - Antibiotic Education pm1 - Prescription Opioid Use pm1 Prescriptions: - Meclizine 25 mg Oral Tablet - take 1 tablet by ORAL route every 8 hours As needed; 30 tablet; Refills: 0, pm1 Product Selection Permitted Signatures: Dispatcher [employer] EDMS Aylin Mccall, RN RN bb Mio Miner, KISHAN LARD MIXER pm1 Yasemin Machado RN RN 1 Prakash Jorge MD MD [email or web address]
--- NOTE | 2021-04-08 22:58 | ER ---
Nurse's Notes [facility] Name: Jacqueline Ramirez Age: 75 yrs Sex: Female : 1945 Arrival Date: 04/08/2021 Time: 19:16 Bed 14 Private MD: Diagnosis: Benign paroxysmal vertigo Presentation: 04/08 20:09 Chief complaint: Patient states: Stated feeling dizzy today around 1730, states Left vg1 ear pain and sore throat and headache. Denies NVD, chest pain. Coronavirus screen: Vaccine status: Patient reports receiving the 2nd dose of the covid vaccine. and boost. Ebola Screen: Patient negative for fever greater than or equal to 101.5 degrees Fahrenheit, and additional compatible Ebola Virus Disease symptoms. Initial Sepsis Screen: Does the patient meet any 2 criteria? No. Patient's initial sepsis screen is negative. Does the patient have a suspected source of infection? No. Patient's initial sepsis screen is negative. Risk Assessment: Do you want to hurt yourself or someone else? Patient reports no desire to harm self or others. Onset of symptoms was April 08, 2021. 20:09 Method Of Arrival: Ambulatory vg1 20:09 Acuity: NASRIN 3 vg1 Triage Assessment: 20:09 General: Appears in no apparent distress. comfortable, Behavior is calm, cooperative. vg1 Pain: Complains of pain in left ear and throat. Historical: - Allergies: 20:12 No Known Allergies; vg1 - Home Meds: 20:12 losartan 50 mg Oral tab [Active]; [place]-3 1000 mg Oral daily [Active]; vg1 - PMHx: 20:12 Hypertension; vg1 - Immunization history:: Client reports receiving the 2nd dose of the Covid vaccine, and booster. - Social history:: Smoking status: Patient denies any tobacco usage or history of. Screenin:45 Abuse screen: Denies threats or abuse. Nutritional screening: No deficits noted. bb Tuberculosis screening: No symptoms or risk factors identified. Fall Risk None identified. Assessment: 20:45 General: Appears in no apparent distress. Behavior is calm, cooperative. Neuro: Level bb of Consciousness is awake, alert, obeys commands, Oriented to person, place, time, situation. Cardiovascular: Heart tones S1 S2 present Capillary refill < 3 seconds Patient's skin is warm and dry. Respiratory: Respiratory effort is even, unlabored, Respiratory pattern is regular, Breath sounds are clear bilaterally. GI: Abdomen is non-distended, Colostomy site Ostomy appliance is intact. Derm: Skin is pink, warm \T\ dry. Musculoskeletal: Circulation, motion, and sensation intact. 23:08 Reassessment: Patient is alert, oriented x 3, equal unlabored respirations, skin bb warm/dry/pink. pt verbalized understanding of and agrees to plan of care discharge instructions given pt ambulated with steady gait to exit accompanied by family. Vital Signs: 20:09 BP 170 / 95; Pulse 89; Resp 16; Temp 98.5; Pulse Ox 98% ; Weight 79.38 kg; Height 5 ft. vg1 2 in. (157.48 cm); Pain 10/10; 22:00 BP 149 / 67; Pulse 77; Resp 16 S; Pulse Ox 98% on R/A; bb 23:09 BP 142 / 70; Pulse 74; Resp 20 S; Temp 98.1(O); Pulse Ox 98% on R/A; bb 20:09 Body Mass Index 32.01 (79.38 kg, 157.48 cm) vg1 ED Course: 19:16 Patient arrived in ED. es 20:09 Arm band placed on. vg1 20:12 Triage completed. vg1 20:25 Initial lab(s) drawn, by sd, sent to lab. Inserted saline lock: 20 gauge in right vg1 antecubital area, using aseptic technique. Blood collected. Inserted saline lock: ,using aseptic technique. completed by [facility] Tech. 20:26 COVID swab sent to lab. Flu and/or RSV swab sent to lab. Strep swab sent to lab. vg1 20:31 Mio Miner NP is PHCP. pm1 20:31 Prakash Jorge MD is Attending Physician. pm1 20:45 Patient has correct armband on for positive identification. Bed in low position. Call bb light in reach. Side rails up X 1. Adult w/ patient. hay baler on. Pulse ox on. NIBP on. Warm blanket given. 20:56 XRAY Chest (1 view) In Process Unspecified. EDMS 21:35 CT Head Brain wo Cont In Process Unspecified. EDMS 21:56 Aylin Mccall, RN is Primary Nurse. bb 23:09 No provider procedures requiring assistance completed. IV discontinued, intact, bb bleeding controlled, No redness/swelling at site. Pressure dressing applied. Administered Medications: 21:13 Drug: Meclizine 50 mg Route: PO; bb 22:18 Follow up: Response: No adverse reaction bb 21:13 Drug: guaiFENesin Liquid 5 ml Route: PO; bb 22:18 Follow up: Response: No adverse reaction bb Outcome: 22:56 Discharge ordered by MD. pm1 23:09 Discharged to home ambulatory, with family. bb 23:09 Condition: stable 23:09 Discharge instructions given to patient, Instructed on discharge instructions, follow up and referral plans. medication usage, Demonstrated understanding of instructions, follow-up care, medications, Prescriptions given X 1. 23:10 Patient left the ED. bb Signatures: Dispatcher [employer] Natalya Damian Brenda, RN RN bb Mio Miner, PARI MUTUEL TICKET CASHIER PARI MUTUEL TICKET CASHIER pm1 Yasemin Machado RN RN vg1 Corrections: (The following items were deleted from the chart) 20:13 20:09 Pulse 89bpm; Resp 16bpm; Pulse Ox 98%; Temp 98.5F; 79.38 kg; Height 5 ft. 2 in.; vg1 BMI: 32.0; Pain 10/10; vg1
[2021-04-08 23:21] VITALS: O2SAT 98
[2021-04-08 23:24] VITALS: BP 142/70; TEMP 98.1
== END 2021-04-08 23:10 | disposition home or self-care (01) ==
LOC: ER 19:14
DX: H81.10 Benign paroxysmal vertigo, unspecified ear (principal); I10 Essential (primary) hypertension; Z20.822 Contact with and (suspected) exposure to COVID-19
CPT/HCPCS: 93005; 87070; 85025; 80048; 36415; 83735; 85610; 80076; 87081; 84484; 83880; 0240U; 70450; 71045; 99284

== ENCOUNTER 2022-06-16 05:16 | Emergency (ER) | payer OTHER ==
--- OUTSIDE RECORDS SUMMARY | 2022-06-16 05:20 | XMS REPORT | Continuity of Care Document ---
:1945 Author Organization [facility] t Address [address] [place] [address] Care Team Providers Name Role Phone Luz Elena Souza MD Attending Clinician Lab, Vikash Fam Pob I Attending Clinician Unavailable LUZ ELENA SOUZA Attending Clinician Unavailable Doctor Unassigned, [place] Attending Clinician Unavailable Provider, [facility] Attending Clinician Unavailable Marilynn Roberto Attending Clinician MARILYNN ROUSE Attending Clinician Unavailable Payers Payer Name Policy Type Policy Number Effective Date Expiration Date S ource Problems Condition Condition Condition Status Onset Resolution Last Treating Co mments Source Name Details Category Date Date Treatment Clinician Date Prediabete Prediabete Disease Active U nivers s s 10-17 ity of 00:00: [address] Mixed Mixed Disease Active Univers hyperlipid hyperlipid 10-17 it y of emia emia 00:00: [address] No known No known Disease Unive rs active active ity of problems problems [facility] Hypertensi Hypertensi Disease [facility] Seasonal Seasonal Disease Active Unive rs allergies allergies ity [facility] Arthritis Arthritis Disease Active [facility] Allergies, Adverse Reactions, Alerts Allergy Allergy Status Severity Reaction(s) Onset Inactive Treating Comm ents Source Name Type Date Date Clinician NO KNOWN Drug Active Univers ALLERGIE Class ity of S [facility] Social History Social Habit Start Date Stop Date Quantity Comments Source Exposure to Not sure University SARS-CoV-2 [facility] (event) [place] Tobacco use and 2020-10-17 2020-10-17 Never used Universit y of exposure 00:00:00 00:00:00 [facility] Alcohol intake 2020-10-17 2020-10-17 Lifetime University of 00:00:00 00:00:00 non-drinker [place] [facility]finding[facility] Sex Assigned At [birth year] Universit y of 00:00:00 00:00:00 [facility] Smoking Status Start Date Stop Date Source Never smoker [facility] Unknown if ever smoked [facility] y [facility] Medications Ordered Filled Start Stop Current Ordering Indication Dosage Frequency Signature Comments Components Source Medication Medication Date Date Medication? Clinician (SIG) Name Name rosuvastati Yes [id number] 10mg Take 1 Univers n 10 mg 7-09 tablet by ity of tablet 00:00: mouth at [place] 00 bedtime. Medical Branch rosuvastati Yes [id number] 10mg Take 1 Univers n 10 mg 6-24 tablet by ity of tablet 00:00: mouth at [place] 00 bedtime. Medical Branch rosuvastati 2020- No [id number] 10mg Take 1 Univers n 10 mg 6-24 07-09 tablet by ity of tablet 00:00: 00:00 mouth at [place] 00 :00 bedtime. Medical Branch ampicillin 2020- No [id number] 500mg Take 1 Univers 500 mg 6-14 - capsule by ity of capsule 00:00: 04:59 [...] mouth [place] 17 daily. Medical Branch Magnesium 0 Yes 250mg Take 250 Uni vers 250 [...] 17 daily. Medical Branch benzonatate 2020- No [id number] 100mg Take 1 Univers (TESSALON - 05-12 capsule by ity of [place]) 100 00:00: 04:59 mouth [place] mg capsule 00 :00 (three) Medica l times Branch daily for 14 days. amoxicillin 2020- No [id number] 1{tbl} Take 1 Univers -clavulanat -27 05-05 tablet by it y of e [...] 4-08 by mouth ity of 00:00: daily. [place] [facility] losartan 50 Yes 50mg Take 50 mg Univers mg tablet 4-08 by mouth ity of 00:00: daily. [place] [facility] losartan 50 0 Yes 50mg Take 50 mg Univers mg tablet 4-08 by mouth ity of 00:00: daily. [place] [facility] losartan 50 Yes 50mg Take 50 mg Univers mg tablet 4-08 by mouth ity of 00:00: daily. [place] [facility] losartan 50 2020-0 Yes 50mg Take 50 mg Univers mg tablet 4-08 by mouth ity of 00:00: daily. [place] [facility] losartan 50 0 Yes 50mg Take 50 mg Univers mg tablet 4-08 by mouth ity of 00:00: daily. [place] [facility] losartan 50 Yes 50mg Take 50 mg Univers mg tablet 4-08 by mouth ity of 00:00: daily. [address] No known No Univers medications ity [facility] Vital Signs Vital Name Observation Time Observation Value Comments Source Systolic blood 2020-10-04 19:11:00 122 mm[Hg] Univer [facility]ity [facility] Diastolic blood 2020-10-04 19:11:00 60 mm[Hg] Unive rsity of [facility] Heart rate 2020-10-04 19:11:00 82 /min [facility] [place] [facility] Body height 2020-10-04 19:11:00 157.5 cm [facility] Body weight 2020-10-04 19:11:00 86.637 kg [facility] BMI 2020-10-04 19:11:00 34.93 kg/m2 [facility] Systolic blood 2020-08-30 18:06:00 154 mm[Hg] Univer sity [facility] Diastolic blood 2020-08-30 18:06:00 81 mm[Hg] Unive rs[facility] of [facility] Heart rate 2020-08-30 18:06:00 80 /min [facility] Body temperature 2020-08-30 18:06:00 [facility].06 [facility] height 2020-08-30 18:06:00 157.5 cm [facility] Body weight 2020-08-30 18:06:00 83.915 kg [facility] BMI 2020-08-30 18:06:00 33.84 kg/m2 [facility] Oxygen saturation in 2020-08-30 18:06:00 96 /min [facility] Arterial blood by [facility] Pulse oximetry Branch Procedures Procedure Date / Time Performed Performing Clinician [facility] e ASSIGNMENT OF BENEFITS 2020-10-04 18:52:56 Doctor Unassigned, No [facility] Name [facility] Branch Encounters Start End Encounter Admission Attending Care Care Encounter Source Date/Time Date/Time Type Type Clinicians Facility Department ID 2020-11-11 2020-11-11 Telephone VU Souza [id number] 00:00:00 00:00:00 [facility] [id number] [place] [id number] Professio [phone] [place] [address] [address] One 2020-11-11 2020-11-11 Telephone VU Souza [id number] Univers 00:00:00 00:00:00 [facility] [id number] ity of [place] [id number] Dave as Professio [phone] [address] Office [address] One 2020-10-27 2020-10-27 VU Bloom [id number] Univers 00:00:00 00:00:00 Management [facility] [id number] ity of [place] [id number] Dave as Professio [phone] [address] Office Building One 2020-10-27 2020-10-27 VU Bloom [id number] 00:00:00 00:00:00 Management [facility] [id number] [place] [id number] Professio [phone] [place] [address] Office [address] One 2020-10-17 2020-10-17 VU Bloom [id number] Univers 00:00:00 00:00:00 Management [facility] [id number] ity of [place] [id number] Dave as Professio [phone] [address] Office [facility] One 2020-10-07 2020-10-07 [facility]phone [facility] [id number] Univers 00:00:00 00:00:00 [facility] [id number] ity of [place] [id number] Dave as Professio [phone] [address] Office [facility] One 2020-10-07 2020-10-07 [place] [facility] [id number] 00:00:00 00:00:00 [facility] [id number] [place] [id number] Professio [phone] One 2020-10-05 2020-10-05 Electrical Maintenance Supervisor Lab, Adc Fam Pob I [facility] 1.2. [id number] [facility] [place] [facility] 08:08:11 08:28:11 Visit [facility] [id number] ity of [place] [id number] Dave as Professio [phone] [address] One 2020-10-05 2020-10-05 Outpatient R HARLEY [facility] [id number] Univers 08:20:00 08:20:00 WONDIFUL ity o f [facility] 2020-10-04 2020-10-04 Office [facility] [id number] Univers 13:54:48 14:57:48 Visit [facility] [id number] ity of [place] [id number] Dave as Professio [phone] [address] Office [facility] One 2020-10-04 2020-10-04 Outpatient R HARLEY [facility] [id number] Univers 14:30:00 14:30:00 WONDIFUL ity o f [facility] 2020-10-04 2020-10-04 Orders Doctor DEENA [id number] Univers 00:00:00 00:00:00 Only Unassigned, ANNIE [id number] ity of [place] [facility] [id number] Dave as [phone] [address] 2020-08-30 2020-08-30 Urgent Provider, [facility] [id number] Univers 13:01:31 14:02:20 Marilynn Sharp [facility] [id number] ity of [place] [id number] Dave as Professio [phone] [address] Office Building One 2020-08-30 2020-08-30 Outpatient Cary ROUSE [facility] [id number] Univers 13:00:00 13:00:00 MARILYNN yao of [facility] Results This patient has no known results.
--- NOTE | 2022-06-16 06:01 | ER ---
Nurse's Notes [facility] Name: Jacqueline Ramirez Age: 76 yrs Sex: Female : 1945 Arrival Date: 06/16/2022 Time: 05:20 Bed 17 Private MD: Diagnosis: Dizziness and giddiness;Abdominal pain, unspecified Presentation: 06/16 05:34 Chief complaint: Patient states: "I woke up with a headache, dizzy, temp of 99, with vc1 some indigestion.". Coronavirus screen: Vaccine status: Patient reports receiving the 2nd dose of the covid vaccine. plus 2 booster; Moderna Client denies travel out of the [place] in the last 14 days. fever, headache, Client presents with at least one sign or symptom that may indicate coronavirus-19. Ebola Screen: Patient negative for fever greater than or equal to 101.5 degrees Fahrenheit, and additional compatible Ebola Virus Disease symptoms Patient denies exposure to infectious person. Patient denies travel to an Ebola-affected area in the 21 days before illness onset. No symptoms or risks identified at this time. Initial Sepsis Screen: Does the patient meet any 2 criteria? No. Patient's initial sepsis screen is negative. Does the patient have a suspected source of infection? No. Patient's initial sepsis screen is negative. Risk Assessment: Do you want to hurt yourself or someone else? Patient reports no desire to harm self or others. Onset of symptoms was June 16, 2022. 05:34 Method Of Arrival: Ambulatory vc1 05:34 Acuity: NASRIN 3 vc1 Triage Assessment: 05:46 Headache History: The patient has had previous headaches and this one is similar to vc1 previous episodes. General: Appears in no apparent distress. uncomfortable, Behavior is calm, cooperative, appropriate for age. Pain: Complains of pain in abdomen Pain currently is 1 out of 10 on a pain scale. Quality of pain is described as Pain began suddenly, Also complains of no other associated symptoms. EENT: No deficits noted. No signs and/or symptoms were reported regarding the EENT system. Neuro: Level of Consciousness is awake, alert, obeys commands, Oriented to person, place, time, situation, Appropriate for age. Neuro: No deficits noted. Cardiovascular: Capillary refill < 3 seconds Patient's skin is warm and dry. Respiratory: Airway is patent Respiratory effort is even, unlabored, Respiratory pattern is regular, symmetrical. GI: Reports lower abdominal pain, upper abdominal pain. : No deficits noted. No signs and/or symptoms were reported regarding the genitourinary system. Derm: No deficits noted. No signs and/or symptoms reported regarding the dermatologic system. Musculoskeletal: No deficits noted. No signs and/or symptoms reported regarding the musculoskeletal system. Historical: - Allergies: 05:45 No Known Allergies; vc1 - Home Meds: 05:45 losartan 50 mg Oral tab [Active]; vc1 - PMHx: 05:45 Hypertension; vc1 - PSHx: 05:45 hysterectomy; vc1 - Immunization history:: Client reports receiving the 2nd dose of the Covid vaccine. - Social history:: Smoking status: Patient denies any tobacco usage or history of. - Family history:: not pertinent. - Hospitalizations: : No recent hospitalization is reported. Screenin:48 [facility] ED Fall Risk Assessment (Adult) History of falling in the last 3 months, vc1 including since admission No falls in past 3 months (0 pts) Confusion or Disorientation No (0 pts) Intoxicated or Sedated No (0 pts) Impaired Gait No (0 pts) Mobility Assist Device Used No (0 pt) Altered Elimination No (0 pt). Abuse screen: Denies threats or abuse. Nutritional screening: No deficits noted. Tuberculosis screening: No symptoms or risk factors identified. Assessment: 05:24 Reassessment: Patient and/or family updated on plan of care and expected duration. Pain ha1 level reassessed. Patient is alert, oriented x 3, equal unlabored respirations, skin warm/dry/pink. pt. reports feeling anxious and wanting to leave. Pt. education was provided on the importance of receiving patient care as ordered by in shift. in shift notified. 05:24 General: Appears comfortable, Behavior is calm, cooperative. Pain: Complains of pain in ha1 abdomen Pain does not radiate. Pain at worst was 7 out of 10 on a pain scale. Neuro: Level of Consciousness is awake, alert, obeys commands, Oriented to person, place, time, situation. Neuro: Reports dizziness, since two days ago. Cardiovascular: Heart tones S1 S2 present Capillary refill < 3 seconds Patient's skin is warm and dry. Respiratory: Airway is patent Respiratory effort is even, unlabored, Respiratory pattern is regular, symmetrical. GI: Reports upper abdominal pain. Musculoskeletal: Circulation, motion, and sensation intact. Range of motion: intact in all extremities. Vital Signs: 05:34 BP 153 / 73; Pulse 84; Resp 15; Temp 97.7; Pulse Ox 100% ; Weight 80.74 kg; Height 5 vc1 ft. 2 in. (157.48 cm); Pain 05/15; 05:34 Body Mass Index 32.56 (80.74 kg, 157.48 cm) vc1 ED Course: 05:20 Patient arrived in ED. ja2 05:21 Paulo Wiley MD is Attending Physician. rn 05:24 Arm band placed on right wrist. ha1 05:45 Triage completed. vc1 05:47 Patti Pepe, ARTUR is Primary Nurse. ha1 05:49 Patient has correct armband on for positive identification. Bed in low position. Pulse vc1 ox on. NIBP on. 05:50 No provider procedures requiring assistance completed. vc1 06:06 Patient did not have IV access during this emergency room visit. ha1 Administered Medications: No medications were administered Medication: 05:51 VIS not applicable for this client. vc1 Outcome: 06:00 Discharge ordered by . rn 06:05 Discharged to home ambulatory, with family. ha1 06:05 Condition: stable 06:05 Discharge instructions given to patient, family, Instructed on discharge instructions, follow up and referral plans. Demonstrated understanding of instructions, follow-up care. 06:06 Patient left the ED. ha1 Signatures: Paulo Wiley MD MD rn Alexander, Jessica 2 Britta Reardon RN RN 1 Patti Pepe RN RN ha1
--- NOTE | 2022-06-16 06:01 | EDPHYS ---
Physician Documentation [facility] Name: Jacqueline Ramirez Age: 76 yrs Sex: Female : 1945 Arrival Date: 06/16/2022 Time: 05:20 Bed 17 Private MD: ED Physician Paulo Wiley HPI: 06/16 05:54 This 76 yrs old Female presents to ER via Ambulatory with complaints of rn Dizziness, Headache, Difficulties Sleeping. 05:54 The patient presents with vertigo. Onset: The symptoms/episode began/occurred this rn morning. Modifying factors: The symptoms are alleviated by holding head still, the symptoms are aggravated by movement of head. Associated signs and symptoms: Pertinent positives: abdominal pain, Pertinent negatives: chest pain, confusion, diaphoresis, head injury, headache, seizure, shortness of breath, syncope, vomiting. Severity of symptoms: At their worst the symptoms were mild in the emergency department the symptoms have improved. The patient has experienced similar episodes in the past. The patient has not recently seen a physician. Pt reports another episode of dizziness and vertigo this AM, no head injury, no trauma, no fever, no chest pain. Pt reports also having mild abd pain, thinks is indigestion or constipation. NO vomiting. NO diarrhea. . Historical: - Allergies: 05:45 No Known Allergies; vc1 - Home Meds: 05:45 losartan 50 mg Oral tab [Active]; vc1 - PMHx: 05:45 Hypertension; vc1 - PSHx: 05:45 hysterectomy; vc1 - Immunization history:: Client reports receiving the 2nd dose of the Covid vaccine. - Social history:: Smoking status: Patient denies any tobacco usage or history of. - Family history:: not pertinent. - Hospitalizations: : No recent hospitalization is reported. ROS: 05:54 Constitutional: Negative for fever, chills, and weight loss, Eyes: Negative for injury, rn pain, redness, and discharge, Neck: Negative for injury, pain, and swelling, Cardiovascular: Negative for chest pain, palpitations, and edema, Respiratory: Negative for shortness of breath, cough, wheezing, and pleuritic chest pain, Abdomen/GI: + abd pain and constipation MS/Extremity: Negative for injury and deformity, Skin: Negative for injury, rash, and discoloration, Neuro: Negative for headache, weakness, numbness, tingling, and seizure. Exam: 05:54 Constitutional: This is a well developed, well nourished patient who is awake, alert, rn and in no acute distress. Head/Face: Normocephalic, atraumatic. Cardiovascular: Regular rate and rhythm. No pulse deficits. Respiratory: No increased work of breathing, no retractions or nasal flaring. Abdomen/GI: soft, mild epigastric tenderness and periumbilical tenderness Skin: Warm, dry MS/ Extremity: Pulses equal, no cyanosis. Neuro: Awake and alert, GCS 15, oriented to person, place, time, and situation. Cranial nerves II-XII grossly intact. Motor strength 5/5 in all extremities. Sensory grossly intact. Cerebellar exam normal. Normal gait. Vital Signs: 05:34 BP 153 / 73; Pulse 84; Resp 15; Temp 97.7; Pulse Ox 100% ; Weight 80.74 kg; Height 5 vc1 ft. 2 in. (157.48 cm); Pain 110; 05:34 Body Mass Index 32.56 (80.74 kg, 157.48 cm) vc1 MDM: 05:21 Patient medically screened. rn 05:54 Differential diagnosis: cardiac arrhythmia, CVA, generalized weakness, rn hyperventilation, hypovolemia, idiopathic dizziness, TIA, vertigo, appendicitis, colitis, enteritis, diverticulitis, AAA, UTI. Data reviewed: vital signs, nurses notes, old medical records. Care significantly affected by the following chronic conditions: Hypertension, vertigo. Counseling: I had a detailed discussion with the patient and/or guardian regarding:. Refusal of service: The patient/guardian displays adequate decision making capability and despite a detailed discussion of alternatives, benefits, risks, and consequences refuses: CT Scan, all lab tests, Medications, all X-rays. ED course: Pt changed her mind shortly after arrival, states feels fine and wants to leave. I recommended full cardiac and abd workup as well as symptomatic treatment for vertigo. Pt understands risks of not completing w/u and implications of leaving and wants to leave. . 06/16 05:41 Order name: IV Saline Lock rn 06/16 05:41 Order name: Labs collected and sent rn 06/16 05:41 Order name: Urine Dipstick-Ancillary (obtain specimen) rn 06/16 05:42 Order name: EKG; Complete Time: 05:43 rn 06/16 05:42 Order name: EKG - Nurse/Tech rn Administered Medications: No medications were administered Disposition Summary: 06/16/22 06:00 Discharge Ordered Location: Home rn Problem: new rn Symptoms: have improved rn Condition: Stable rn Diagnosis - Dizziness and giddiness rn - Abdominal pain, unspecified rn Followup: rn - With: Private Physician - When: As needed - Reason: Recheck today's complaints, Re-evaluation by your physician Discharge Instructions: - Discharge Summary Sheet rn - Abdominal Pain, Adult rn - Dizziness rn Forms: - Medication Reconciliation Form rn - Thank You Letter rn - Antibiotic rn manager - Prescription Opioid Use rn Signatures: Dispatcher [employer] EDPaulo Cortes MD MD rn Calcote, Vanessa, RN RN vc1
[2022-06-16 06:10] VITALS: BP 153/73; TEMP 97.7; O2SAT 100
== END 2022-06-16 06:06 | disposition home or self-care (01) ==
LOC: ER 05:16
DX: R42 Dizziness and giddiness (principal); R10.9 Unspecified abdominal pain; I10 Essential (primary) hypertension
CPT/HCPCS: 99283